=== PATIENT | female | born 1980 | race Caucasian/White ===

== ENCOUNTER 2020-09-14 17:00 | Observation (INO) | payer MEDICAID ==
[2020-09-14] MEDS ORDERED: ONDANSETRON 4 MG/2 ML VIAL IVP STA (17:23)
[2020-09-14] MEDS ORDERED: SODIUM CHLORIDE 0.9% 1,000 ML IV STA (17:23)
[2020-09-14] MEDS ORDERED: LORazepam 2 MG/ML INJ IV STA (17:24)
[2020-09-14] MEDS ORDERED: MECLIZINE 12.5 MG TAB PO STA (17:24)
--- NOTE | 2020-09-14 17:44 | ED ---
General Adult HPI - General Chief complaint: Neuro Symptoms/Deficit Stated complaint: Dizziness, Facial Numbness Time Seen by Provider: 09/14/20 17:15 Source: patient, RN notes reviewed, old records reviewed Mode of arrival: wheelchair Limitations: no limitations - History of Present Illness Initial comments: 40-year-old female presented for evaluation of dizziness, nausea. Patient states that she feels that the room is spinning. This began suddenly at approximately 3:30 PM. She denies any preceding symptoms. No focal numbness or weakness. She states she has bilateral hand and bilateral feet numbness. She states she did have some right-sided chest pain. No central radiating chest pain. No fever or chills. She's had nausea without significant vomiting. - Related Data Home Medications Medication Instructions Recorded Confirmed Ibuprofen [Advil] 600 mg PO Q8HR PRN 09/14/20 09/14/20 buPROPion HCL [Wellbutrin XL] 150 mg PO DAILY 09/14/20 09/14/20 lisinopriL 40 mg PO DAILY 09/14/20 09/14/20 Allergies Allergy/AdvReac Type Severity Reaction Status Date / Time No Known Allergies Allergy Verified 09/14/20 19:01 Review of Systems ROS Statement: Those systems with pertinent positive or pertinent negative responses have been documented in the HPI. ROS Other: All systems not noted in ROS Statement are negative. Past Medical History Past Medical History: Hypertension History of Any Multi-Drug Resistant Organisms: None Reported Past Surgical History: Tubal Ligation Additional Past Surgical History / Comment(s): bunionectomy Past Psychological History: Depression Smoking Status: Vaper Past Alcohol Use History: None Reported Past Drug Use History: None Reported General Exam Limitations: no limitations General appearance: alert, in no apparent distress Head exam: Present: atraumatic, normocephalic Eye exam: Present: normal appearance, PERRL ENT exam: Present: normal exam Neck exam: Present: normal inspection. Absent: tenderness, meningismus Respiratory exam: Present: normal lung sounds bilaterally. Absent: respiratory distress, wheezes Cardiovascular Exam: Present: regular rate, normal rhythm GI/Abdominal exam: Present: soft. Absent: distended, tenderness, guarding, rebound Extremities exam: Present: normal inspection, normal capillary refill, other (2+ bilateral radial pulses, 2+ pedal pulse). Absent: pedal edema Neurological exam: Present: alert, oriented X3, CN II-XII intact. Absent: motor sensory deficit (Strength is 5 out of 5, there is no limb ataxia, Romberg negative) Psychiatric exam: Present: anxious Skin exam: Present: warm, dry, intact. Absent: cyanosis, diaphoretic Course Vital Signs 09/14/20 09/14/20 09/14/20 17:09 17:52 18:00 Temperature 98.3 F Pulse Rate 90 88 86 Respiratory 18 16 17 Rate Blood Pressure 147/89 141/95 O2 Sat by Pulse 100 99 97 Oximetry 09/14/20 09/14/20 09/14/20 18:30 18:33 19:00 Temperature Pulse Rate 100 102 H 96 Respiratory 17 16 16 Rate Blood Pressure 125/84 124/82 124/82 O2 Sat by Pulse 98 98 97 Oximetry 09/14/20 20:18 Temperature 97.6 F Pulse Rate 85 Respiratory 20 Rate Blood Pressure 120/78 O2 Sat by Pulse 97 Oximetry EKG Findings - EKG Comments: EKG Findings:: EKG: Normal sinus rhythm, rate of 87, FL interval 148, QRS duration 84, QTC 464, no ST segment elevation. Medical Decision Making - Medical Decision Making 40-year-old female presenting for evaluation of dizziness, mild headache. Patient is non-ataxic, she did complain of some bilateral hand numbness associated with this as well as foot numbness. This was not unilateral and there was no associated weakness. She has stable vitals. EKG showing sinus rhythm. She has normal CBC, normal CMP, 2+ ketones in the urine. CT brain performed which is negative for intracranial hemorrhage or mass effect. CT angiography is negative for stenosis or acute occlusion. She's given multiple doses of antiemetics, meclizine, and IV fluids in the emergency department. Her symptoms persist. She will be admitted for hydration , symptom control, and neurology consultation. Case discussed with Justin dueñas for [facility], will accept admission. - Lab Data Result diagrams: 09/14/20 17:36 09/14/20 17:36 Lab Results 09/14/20 09/14/20 09/14/20 Range/Units 17:36 17:36 17:36 WBC 7.6 (3.8-10.6) k/uL RBC 4.84 (3.80-5.40) m/uL Hgb 15.8 (11.4-16.0) gm/dL Hct 46.6 H (34.0-46.0) % MCV 96.2 (80.0-100.0) fL MCH 32.6 (25.0-35.0) pg MCHC 33.9 (31.0-37.0) g/dL RDW 12.0 (11.5-15.5) % Plt Count 312 (150-450) k/uL MPV 6.7 Neutrophils % 74 % Lymphocytes % 19 % Monocytes % 4 % Eosinophils % 2 % Basophils % 0 % Neutrophils # 5.6 (1.3-7.7) k/uL Lymphocytes # 1.4 (1.0-4.8) k/uL Monocytes # 0.3 (0-1.0) k/uL Eosinophils # 0.2 (0-0.7) k/uL Basophils # 0.0 (0-0.2) k/uL PT 10.6 (9.0-12.0) sec INR 1.0 (<1.2) APTT 23.5 (22.0-30.0) sec Sodium (137-145) mmol/L Potassium (3.5-5.1) mmol/L Chloride (98-107) mmol/L Carbon Dioxide (22-30) mmol/L Anion Gap mmol/L BUN (7-17) mg/dL Creatinine (0.52-1.04) mg/dL Est GFR (CKD-EPI)AfAm (>60 ml/min/1.73 sqM) Est GFR (CKD-EPI)NonAf (>60 ml/min/1.73 sqM) Glucose (74-99) mg/dL Calcium (8.4-10.2) mg/dL Total Bilirubin (0.2-1.3) mg/dL AST (14-36) U/L ALT (4-34) U/L Alkaline Phosphatase (38-126) U/L Troponin I (0.000-0.034) ng/mL Total Protein (6.3-8.2) g/dL Albumin (3.5-5.0) g/dL Urine Color Colorless Urine Appearance Clear (Clear) Urine pH 6.0 (5.0-8.0) Ur Specific Frannie 1.005 (1.001-1.035) Urine Protein Negative (Negative) Urine Glucose (UA) Negative (Negative) Urine Ketones 2+ H (Negative) Urine Blood Negative (Negative) Urine Nitrite Negative (Negative) Urine Bilirubin Negative (Negative) Urine Urobilinogen <2.0 (<2.0) mg/dL Ur Leukocyte Esterase Negative (Negative) 09/14/20 09/14/20 Range/Units 17:36 17:36 WBC (3.8-10.6) k/uL RBC (3.80-5.40) m/uL Hgb (11.4-16.0) gm/dL Hct (34.0-46.0) % MCV (80.0-100.0) fL MCH (25.0-35.0) pg MCHC (31.0-37.0) g/dL RDW (11.5-15.5) % Plt Count (150-450) k/uL MPV Neutrophils % % Lymphocytes % % Monocytes % % Eosinophils % % Basophils % % Neutrophils # (1.3-7.7) k/uL Lymphocytes # (1.0-4.8) k/uL Monocytes # (0-1.0) k/uL Eosinophils # (0-0.7) k/uL Basophils # (0-0.2) k/uL PT (9.0-12.0) sec INR (<1.2) APTT (22.0-30.0) sec Sodium 134 L (137-145) mmol/L Potassium 4.0 (3.5-5.1) mmol/L Chloride 99 (98-107) mmol/L Carbon Dioxide 23 (22-30) mmol/L Anion Gap 12 mmol/L BUN 6 L (7-17) mg/dL Creatinine 0.73 (0.52-1.04) mg/dL Est GFR (CKD-EPI)AfAm >90 (>60 ml/min/1.73 sqM) Est GFR (CKD-EPI)NonAf >90 (>60 ml/min/1.73 sqM) Glucose 103 H (74-99) mg/dL Calcium 9.7 (8.4-10.2) mg/dL Total Bilirubin 0.7 (0.2-1.3) mg/dL AST 21 (14-36) U/L ALT 26 (4-34) U/L Alkaline Phosphatase 56 (38-126) U/L Troponin I <0.012 (0.000-0.034) ng/mL Total Protein 8.2 (6.3-8.2) g/dL Albumin 4.8 (3.5-5.0) g/dL Urine Color Urine Appearance (Clear) Urine pH (5.0-8.0) Ur Specific Frannie (1.001-1.035) Urine Protein (Negative) Urine Glucose (UA) (Negative) Urine Ketones (Negative) Urine Blood (Negative) Urine Nitrite (Negative) Urine Bilirubin (Negative) Urine Urobilinogen (<2.0) mg/dL Ur Leukocyte Esterase (Negative) Disposition Clinical Impression: Dehydration, Vertigo Disposition: ADMITTED IP TO THIS [facility] Condition: Stable Is patient prescribed a controlled substance at d/c from ED?: No Referrals: Nonstaff,Physician [Primary Care Provider] - 1-2 days Decision to Admit Reason: Admit from EC Decision Date: 09/14/20 Decision Time: 20:36
[2020-09-14 17:52] LABS: Basophils % (A) 0 %; Eosinophils # (A) 0.2 k/uL (0-0.7); Eosinophils % (A) 2 %; HCT 46.6 % (34.0-46.0); HGB 15.8 gm/dL (11.4-16.0); Lymphocytes # (A) 1.4 k/uL (1.0-4.8); Lymphocytes % (A) 19 %; MCH 32.6 pg (25.0-35.0); MCHC 33.9 g/dL (31.0-37.0); MCV 96.2 fL (80.0-100.0); Mean Platelet Volume 6.7; Monocytes # (A) 0.3 k/uL (0-1.0); Monocytes % (A) 4 %; Neutrophils # (A) 5.6 k/uL (1.3-7.7); Neutrophils % (A) 74 %; Platelet Count 312 k/uL (150-450); RBC 4.84 m/uL (3.80-5.40); WBC 7.6 k/uL (3.8-10.6)
[2020-09-14 18:08] LABS: Partial Thromboplastin Time 23.5 sec (22.0-30.0); Prothrombin Time 10.6 sec (9.0-12.0)
[2020-09-14 18:12] LABS: ALT 26 U/L (4-34); AST 21 U/L (14-36); African American GFR (CKD) >90 (>60 ml/min/1.73 sqM); Albumin 4.8 g/dL (3.5-5.0); Alkaline Phosphatase 56 U/L (38-126); Anion Gap 12 mmol/L; Blood Urea Nitrogen 6 mg/dL (7-17); Calcium 9.7 mg/dL (8.4-10.2); Carbon Dioxide 23 mmol/L (22-30); Chloride 99 mmol/L (98-107); Glucose 103 mg/dL (74-99); Non-African American GFR(CKD) >90 (>60 ml/min/1.73 sqM); Sodium 134 mmol/L (137-145); Total Bilirubin 0.7 mg/dL (0.2-1.3); Total Protein 8.2 g/dL (6.3-8.2)
[2020-09-14 18:16] LABS: Appearance,Urine Clear (Clear); Bilirubin,Urine Negative (Negative); Blood,Urine Negative (Negative); Color,Urine Colorless; Glucose,Urine (UA) Negative (Negative); Ketones,Urine 2+ (Negative); Leukocyte Esterase,Urine Negative (Negative); Nitrite,Urine Negative (Negative); Protein,Urine Negative (Negative); Specific Gravity,Urine 1.005 (1.001-1.035); Urobilinogen,Urine <2.0 mg/dL (<2.0)
--- NOTE | 2020-09-14 18:34 | XR ---
EXAMINATION TYPE: XR chest 1V portable DATE OF EXAM: 09/14/2020 COMPARISON: NONE HISTORY: Dizziness TECHNIQUE: Single view FINDINGS: Heart and mediastinum are normal. Lungs are clear. Diaphragm is normal. Bony thorax is inta ct. IMPRESSION: Normal chest
--- NOTE | 2020-09-14 18:55 | CT ---
EXAMINATION TYPE: CT brain wo con DATE OF EXAM: 09/14/2020 COMPARISON: None HISTORY: Dizziness and bilateral hand and feet numbness. CT DLP: 1070.8 mGycm Automated exposure control for dose reduction was used. Ventricles and sulci appear normal. There is no mass effect nor midline shift. There is no sign of in tracranial hemorrhage. The calvarium is intact. There is no evidence of cerebral edema. IMPRESSION: Negative unenhanced head CT scan.
[2020-09-14] MEDS ORDERED: KETOROLAC 15 MG/ML 1 ML VIAL IVP STA (19:36)
[2020-09-14] MEDS ORDERED: SODIUM CHLORIDE 0.9% 500 ML 500 ML IV ONE (19:37)
--- NOTE | 2020-09-14 20:10 | CT ---
EXAMINATION TYPE: CT angio head neck DATE OF EXAM: 09/14/2020 COMPARISON: None HISTORY: Dizziness and bilateral hand and feet numbness. CT DLP: 621.3 mGycm Automated exposure control for dose reduction was used. CONTRAST: Performed with IV Contrast, patient injected with 65ml mL of Isovue 370. Images obtained from the aortic arch to the vertex of the brain with IV contrast. There are 3-D post processed images. There is normal branching pattern of the great vessels on the aortic arch. There is bilateral arteria l flow in the subclavian arteries. There is arterial flow in the common internal and external carotid arteries bilaterally. There is 0% stenosis in both internal carotid arteries. Carotid artery bifurca tions are widely patent. There is arterial flow in both vertebral arteries which are fairly symmetric . There is no evidence of stenosis. There is arterial flow in the vertebrobasilar artery system. There is no evidence of carotid or verte bral artery aneurysm or dissection. There is arterial flow in the anterior middle and posterior cerebral arteries bilaterally. There is n o mass effect. There is no sign of intracranial aneurysm or neovascularity. There is normal enhanceme nt of the venous sinuses. IMPRESSION: Negative CT angiogram of the brain. Negative CT angiogram of the neck.
[2020-09-14] MEDS ORDERED: ONDANSETRON 4 MG/2 ML VIAL IVP PRN (20:29)
[2020-09-14] MEDS ORDERED: ACETAMINOPHEN TAB 325 MG TAB PO PRN (20:29)
[2020-09-14] MEDS ORDERED: LORazepam 2 MG/ML INJ IV PRN (20:29)
[2020-09-14] MEDS ORDERED: NALOXONE 0.4 MG/ML 1 ML VIAL IV PRN (20:29)
[2020-09-14] MEDS ORDERED: MECLIZINE 25 MG TAB PO PRN (20:31)
[2020-09-14] MEDS ORDERED: ASPIRIN 325 MG TAB PO STA (20:37)
[2020-09-14] MEDS: SODIUM CHLORIDE 0.9% 1,000 ML IV SCH (20:48)
[2020-09-15] MEDS: KETOROLAC 15 MG/ML 1 ML VIAL IVP PRN ×2 (05:06→12:01)
[2020-09-15] MEDS: SODIUM CHLORIDE 0.9% 1,000 ML IV SCH (05:07)
[2020-09-15 08:20] VITALS: BP 117/76; PULSE 73; RESP 16; TEMP 98.4
[2020-09-15] MEDS ORDERED: ASPIRIN 325 MG TAB PO SCH (09:00)
--- NOTE | 2020-09-15 11:15 | P.CNNES ---
History of Present Illness Consult date: 09/15/20 Requesting physician: Parker Arreola Reason for Consult: dizziness History of Present Illness: This is a 40-year-old woman with medical history of hypertension and anxiety that presented to the emergency department on 09/14/2020 for dizziness. Patient stated that she is a having a sensation of the room is spinning and it started around 3:30 PM on 09/14/2020. Her dizziness is provoked with position and relieved predominately with resting and not moving. She does have nausea but no vomiting. She denies ringing of the ears of hearing losss. She denies any focal weakness. She does have bilateral hand and feet numbness at onset of dizziness and it subsided within a couple hours. She denied any visual dist urbance, difficulty getting her words out or swallowing. She denies of any fever. She denies any trauma to the head or ear. She denies of cough. She said her Wellbutrin was increased this past Monday from 50mg regular dose to 150XR daily because of her anxiety. Workup in the hospital consisted of: CT of the head is reported as negative unenhanced head CT scan. CT angiography of the head and neck was reported as negative of the brain and negative CT angiography of the neck. EKG is reported as normal sinus rhythm. Normal EKG. White blood cell is 7.6 which is normal. Sodium is 134. Serum glucose is 103. Serum glucose is 9.7. AST 21 ALT is 26. Urine analysis is negative for urinary tract infection. Layne virus PCR was not detected. In the ED the patient was given the meclizine 25 mg once and then was started on the 25 mg 1 tablet 3 times a day when necessary. Patient was also given Ativan 0.5 mg once. And was given Zofran 4 mg IV once in the ED then was started on Zofran 4 mg IV every 8 hours as needed. Review of Systems Review of system: The 12 point system was reviewed and apparent positive and negative per HPI. Past Medical History Past Medical History: Hypertension History of Any Multi-Drug Resistant Organisms: None Reported Past Surgical History: Tubal Ligation Additional Past Surgical History / Comment(s): bunionectomy Past Anesthesia/Blood Transfusion Reactions: No Reported Reaction Past Psychological History: Anxiety Smoking Status: Vaper Past Alcohol Use History: None Reported Past Drug Use History: None Reported Medications and Allergies Home Medications Medication Instructions Recorded Confirmed Type Ibuprofen [Advil] 600 mg PO Q8HR PRN 09/14/20 09/14/20 History buPROPion HCL [Wellbutrin XL] 150 mg PO DAILY 09/14/20 09/14/20 History lisinopriL 40 mg PO DAILY 09/14/20 09/14/20 History Allergies Allergy/AdvReac Type Severity Reaction Status Date / Time No Known Allergies Allergy Verified 09/14/20 19:01 Physical Examination - Vital Signs Vital Signs: Vital Signs Temp Pulse Pulse Pulse Pulse Pulse Resp 09/15/20 09:41 09/15/20 07:00 98.4 F 94 94 73 16 09/15/20 02:30 97.9 F 95 14 09/15/20 01:57 18 09/14/20 22:45 97.9 F 75 18 09/14/20 22:20 97.8 F 85 20 09/14/20 20:18 97.6 F 85 20 09/14/20 19:00 96 16 09/14/20 18:33 102 H 16 09/14/20 18:30 100 17 09/14/20 18:00 86 17 09/14/20 17:52 88 16 09/14/20 17:09 98.3 F 90 18 BP BP BP BP BP Pulse Ox 09/15/20 09:41 95 09/15/20 07:00 99/66 110/73 117/76 96 09/15/20 02:30 106/67 93 L 09/15/20 01:57 09/14/20 22:45 127/86 96 09/14/20 22:20 115/83 95 09/14/20 20:18 120/78 97 09/14/20 19:00 124/82 97 09/14/20 18:33 124/82 98 09/14/20 18:30 125/84 98 09/14/20 18:00 141/95 97 09/14/20 17:52 99 09/14/20 17:09 147/89 100 Intake and Output 09/14/20 09/15/20 09/15/20 22:59 06:59 14:59 Intake Total 120 Balance 120 Intake: Oral 120 Other: # Voids 1 Weight 82.554 kg GENERAL: The patient is lying in bed and is not in acute distress. CHEST: The heart rate is regular rate rhythm. No murmurs to auscultation. LUNG: Clear to auscultation bilaterally no wheezing noted throughout. Not labored breathing. ABDOMEN/GI: Bowel sounds present in all 4 quadrants. No tenderness to palpation throughout. NEUROLOGICAL: Higher mental function: The patient is awake, alert, oriented to self, place and time. Patient is following commands. No aphasia and no neglect. Cranial nerves: The pupils are round, equal and reactive to light and accommodation. Visual poon are full to confrontation throughout. Extraocular movement is intact no nystagmus is noted. Facial sensation is normal to touch throughout. The facial strength is normal throughout. Hearing is normal bilaterally to hand rub. Tongue is midline and moved [id number] without any difficulty. No dysarthria is noted. Shoulder shrug is normal bilaterally. Motor: Gait was assssed and patient felt dizzy with movement but was not swaying toward one side or the other. The strength is 5 over 5 throughout. Normal tone and bulk. Cerebellum: Normal finger to nose bilaterally. Sensation: Sensation is normal to touch throughout. Reflexes (right/left): 2+ throughout. Plantars are downgoing bilaterally. Results - Laboratory Findings CBC and BMP: 09/14/20 17:36 09/14/20 17:36 Abnormal Lab Findings: Abnormal Labs 09/14/20 09/14/20 09/14/20 17:36 17:36 17:36 Hct 46.6 H Sodium 134 L BUN 6 L Glucose 103 H Urine Ketones 2+ H Assessment and Plan Assessment: This is a 40-year-old woman that presented to emergency department on 09/14/2020 because of dizziness. She describes as the room is spinning and she feels nauseous. Her dizziness is worsened with position and relieved with rest. er Wellbutrin was increased this past Monday from 50mg regular dose to 150XR daily because of her anxiety. Acute vertigo likely due to benign positional vertigo. Also possible it could be a side-effect of Wellbutrin (since can cause dizziness especially with drastic increase). History of hypertension Anxiety Plan: CT of the head is reported as negative unenhanced head CT scan. CT angiography of the head and neck was reported as negative of the brain and negative CT angiography of the neck. In the ED the patient was given the meclizine 25 mg once and then was started on the 25 mg 1 tablet 3 times a day when necessary. Patient was also given Ativan 0.5 mg once. And was given Zofran 4 mg IV once in the ED then was started on Zofran 4 mg IV every 8 hours as needed. Patient well was told that the MRI the brain is not needed as an inpatient. If the patient continues to have dizziness as an outpatient the then she was told to get the MRI of the brain as an outpatient or if she develops any new symptoms to come back and we'll pursue with this MRI the brain that. Regarding the meclizine I recommend the patient to be on 25 mg 1 tablet 3 times a day as scheduled (her symptoms are improving). Also recommended for the patient the did perform Edwar maneuver at home. Consider ENT the consult as an outpatient. Also consider vestibular rehab as an outpatient. Regarding the Wellbutrin, the patient stated that her physician modified her medication from extended release and will place her on a twice a day dose instead of the extended release (she said she will pick-up the medication from the pharmacy). There is no further work-up needed at this time. The plan was discussed with the patient and her nuse. Thank you for the consultation. Yuriy Mario M.D. Neuro-hospitalist Time with Patient: Greater than 30
[2020-09-15] MEDS ORDERED: SODIUM CHLORIDE 0.9% 1,000 ML IV ONE (12:23)
--- NOTE | 2020-09-15 15:07 | P.HPIM ---
History of Present Illness 40-year-old pleasant female came in with complaints of dizziness which is room spinning around her rather lightheadedness. Patient the blood pressure is also low on admission. Patient was started on JACK inhibitor about 40 mg of lis inopril after because of her -induced hypertension. Patient denied any hearing loss or ringing in the ears patient was having nausea but no vomiting, patient denied any fever chills patient denied any fullness in the ears or ringing in the ears. Patient to Had a workup with a CT of the head which did not show any significant abnormality CT angiography of the head and neck did not show any significant abnormality either. Review of Systems REVIEW OF SYSTEMS: CONSTITUTIONAL: No fever, no malaise, no fatigue. HEENT: No recent visual problems or hearing problems. Denied any sore throat. CARDIOVASCULAR: No chest pain, orthopnea, PND, no palpitations, no syncope. PULMONARY: No shortness of breath, no cough, no hemoptysis. GASTROINTESTINAL: No diarrhea, no nausea, no vomiting, no abdominal pain. NEUROLOGICAL: No headaches, no weakness, no numbness. HEMATOLOGICAL: Denies any bleeding or petechiae. GENITOURINARY: Denies any burning micturition, frequency, or urgency. MUSCULOSKELETAL/RHEUMATOLOGICAL: Denies any joint pain, swelling, or any muscle pain. ENDOCRINE: Denies any polyuria or polydipsia. The rest of the 14-point review of systems is negative. Past Medical History Past Medical History: Hypertension History of Any Multi-Drug Resistant Organisms: None Reported Past Surgical History: Tubal Ligation Additional Past Surgical History / Comment(s): bunionectomy Past Anesthesia/Blood Transfusion Reactions: No Reported Reaction Past Psychological History: Anxiety Smoking Status: Vaper Past Alcohol Use History: None Reported Past Drug Use History: None Reported Medications and Allergies Home Medications Medication Instructions Recorded Confirmed Type Ibuprofen [Advil] 600 mg PO Q8HR PRN 09/14/20 09/14/20 History buPROPion HCL [Wellbutrin XL] 150 mg PO DAILY 09/14/20 09/14/20 History lisinopriL 40 mg PO DAILY 09/14/20 09/14/20 History Meclizine [Antivert] 25 mg PO TID PRN #30 tab 09/15/20 Rx Allergies Allergy/AdvReac Type Severity Reaction Status Date / Time No Known Allergies Allergy Verified 09/14/20 19:01 Physical Exam Vitals: Vital Signs Temp Pulse Pulse Pulse Pulse Pulse Resp 09/15/20 09:41 09/15/20 07:00 98.4 F 94 94 73 16 09/15/20 02:30 97.9 F 95 14 09/15/20 01:57 18 09/14/20 22:45 97.9 F 75 18 09/14/20 22:20 97.8 F 85 20 09/14/20 20:18 97.6 F 85 20 09/14/20 19:00 96 16 09/14/20 18:33 102 H 16 09/14/20 18:30 100 17 09/14/20 18:00 86 17 09/14/20 17:52 88 16 09/14/20 17:09 98.3 F 90 18 BP BP BP BP BP Pulse Ox 09/15/20 09:41 95 09/15/20 07:00 99/66 110/73 117/76 96 09/15/20 02:30 106/67 93 L 09/15/20 01:57 09/14/20 22:45 127/86 96 09/14/20 22:20 115/83 95 09/14/20 20:18 120/78 97 09/14/20 19:00 124/82 97 09/14/20 18:33 124/82 98 09/14/20 18:30 125/84 98 09/14/20 18:00 141/95 97 09/14/20 17:52 99 09/14/20 17:09 147/89 100 Intake and Output 09/15/20 09/15/20 09/15/20 06:59 14:59 22:59 Intake Total 120 Balance 120 Intake: Oral 120 Other: # Voids 1 PHYSICAL EXAMINATION: GENERAL: The patient is alert and oriented x3, not in any acute distress. Well developed, well nourished. HEENT: Pupils are round and equally reacting to light. EOMI. No scleral icterus. No conjunctival pallor. Normocephalic, atraumatic. No pharyngeal erythema. No thyromegaly. CARDIOVASCULAR: S1 and S2 present. No murmurs, rubs, or gallops. PULMONARY: Chest is clear to auscultation, no wheezing or crackles. ABDOMEN: Soft, nontender, nondistended, normoactive bowel sounds. No palpable organomegaly. MUSCULOSKELETAL: No joint swelling or deformity. EXTREMITIES: No cyanosis, clubbing, or pedal edema. NEUROLOGICAL: Gross neurological examination did not reveal any focal deficits. Performed Lico- Halspike maneuver with improvement of symptoms. SKIN: No rashes. Results CBC & Chem 7: 09/14/20 17:36 09/14/20 17:36 Labs: Abnormal Lab Results - Last 24 Hours (Table) 09/14/20 09/14/20 09/14/20 Range/Units 17:36 17:36 17:36 Hct 46.6 H (34.0-46.0) % Sodium 134 L (137-145) mmol/L BUN 6 L (7-17) mg/dL Glucose 103 H (74-99) mg/dL Urine Ketones 2+ H (Negative) Thrombosis Risk Factor Assmnt - Choose All That Apply Any of the Below Risk Factors Present?: Yes Each Factor Represents 1 point: Obesity (BMI >25) Other Risk Factors: No Thrombosis Risk Factor Assessment Total Risk Factor Score: 1 Thrombosis Risk Factor Assessment Level: Low Risk Assessment and Plan Plan: -Benign push vertigo: Patient was evaluated by neurology and patient will be discharged today with meclizine patient had improved symptoms with the lico- halspike maneuver and patient will be counseled regarding a Edwar's Maneuver. Patient will be referred to ENT as well and if her symptoms doesn't improve in spite of all these measures may need vestibular rehabilitation at that time. -Hypertension: I do not believe patient has essential hypertension patient may have had -induced hypertension patient was on lisinopril since then patient will be discontinued and patient will check her blood pressure 2-3 times a day at home and depending on the blood pressures decision can be made regarding the initiation of this medication. -Anxiety disorder for which patient is on Wellbutrin possibility of Wellbutrin causing vertigo is low -Hypovolemic hyponatremia: Patient was given a bolus of IV normal saline deformity or discharge.
--- NOTE | 2020-09-15 15:07 | P.DS ---
Providers Date of admission: 09/14/20 20:31 Attending physician: Evon Fletcher Consults: 09/14/20 20:36 Consult Physician Routine Consulting Provider: Yuriy Mario Reason/Comments: Vertigo Do you want consulting provider notified?: Yes Primary care physician: Physician Nonsta Hospital Course: Refer to my history of present illness for further details Patient Condition at Discharge: Stable Plan - Discharge Summary Discharge Rx Participant: No New Discharge Prescriptions: New Meclizine [Antivert] 25 mg PO TID PRN #30 tab PRN Reason: Vertigo Continue lisinopriL 40 mg PO DAILY buPROPion HCL [Wellbutrin XL] 150 mg PO DAILY Ibuprofen [Advil] 600 mg PO Q8HR PRN PRN Reason: Pain Or Fever > 100.5 Discharge Medication List Ibuprofen [Advil] 600 mg PO Q8HR PRN 09/14/20 [History] buPROPion HCL [Wellbutrin XL] 150 mg PO DAILY 09/14/20 [History] lisinopriL 40 mg PO DAILY 09/14/20 [History] Meclizine [Antivert] 25 mg PO TID PRN #30 tab 09/15/20 [Rx] Follow up Appointment(s)/Referral(s): Patrice Odom MD [REFERRING] - 1 Week Preeti Menon PAC [REFERRING] - 09/22/20 10:30 am Angel Sargent MD [STAFF PHYSICIAN] - 09/23/20 7:45 am (arrive at 715 assistant [employer] delivery [facility]) Patient Instructions/Handouts: Benign Paroxysmal Positional Vertigo (DC) Discharge Disposition: HOME SELF-CARE
== END 2020-09-15 14:10 | disposition home or self-care (01) ==
LOC: EC 17:00 → 6NMEDSUR 20:31
PROVIDERS: ADMIT Internal Medicine; ATTEND Internal Medicine
DX: E86.0 Dehydration (principal); H81.10 Benign paroxysmal vertigo, unspecified ear; E86.1 Hypovolemia; E87.1 Hypo-osmolality and hyponatremia; Z20.828 Contact with and (suspected) exposure to other viral communicable diseases; Z98.51 Tubal ligation status; Z98.890 Other specified postprocedural states; F41.9 Anxiety disorder, unspecified; F17.290 Nicotine dependence, other tobacco product, uncomplicated; Z79.899 Other long term (current) drug therapy
CPT/HCPCS: 96376; 96361; 96374; 96375; 99285; 36415; 94760; 93005; 80053; 84484; 85025; 85610; 85730; 81003; 87635; 71045; 70496; 70450; 70498; G0378 ×2; J2060; J2405; J1885 ×2; Q9967

== ENCOUNTER 2021-08-06 05:58 | Observation (INO) | payer MEDICAID ==
[2021-08-06] MEDS ORDERED: SODIUM CHLORIDE 0.9% 500 ML 500 ML IV STA (06:49)
[2021-08-06] MEDS ORDERED: LORazepam 2 MG/ML INJ IV STA (06:49)
[2021-08-06] MEDS ORDERED: ASPIRIN 81 MG PO STA (06:49)
--- NOTE | 2021-08-06 06:52 | ED ---
General Adult HPI - General Chief complaint: Chest Pain Stated complaint: Chest pain Time Seen by Provider: 08/06/21 06:12 Source: patient Mode of arrival: wheelchair Limitations: physical limitation - History of Present Illness Initial comments: 41-year-old female with a past medical history of hypertension presents to the emergency room for a chief complaint of chest pain. Patient states she has had a squeezing pain in the center of her chest since last night around 7:30 PM. Patient reports it does radiate to her back slightly. Patient states that she also feels anxious. She reports that this has been happening on and off for the past couple months. She saw her doctor yesterday who changed her anxiety medications and gave her a weight loss of Ozempic. She does not to some nausea and vomited once yesterday but this could be from her medication. Patient denies diaphoresis. Denies pain worsening with exertion.Patient has no other complaints at this time including shortness of breath, abdominal pain, nausea or vomiting, headache, or visual changes. - Related Data Home Medications Medication Instructions Recorded Confirmed Ascorbic Acid [Vitamin C] 1,000 mg PO DAILY 08/06/21 08/06/21 Cholecalciferol [Vitamin D3 (125 125 mcg PO DAILY 08/06/21 08/06/21 Mcg = 5000 Iu)] FLUoxetine HCL [PROzac] 10 mg PO DAILY 08/06/21 08/06/21 Zinc 50 mg PO DAILY 08/06/21 08/06/21 buPROPion HCL [Wellbutrin SR] See Taper PO DAILY 08/06/21 08/06/21 lisinopriL [Zestril] 20 mg PO DAILY 08/06/21 08/06/21 traZODone HCL [Desyrel] 100 mg PO HS PRN 08/06/21 08/06/21 Allergies Allergy/AdvReac Type Severity Reaction Status Date / Time No Known Allergies Allergy Verified 08/06/21 09:21 Review of Systems ROS Statement: Those systems with pertinent positive or pertinent negative responses have been documented in the HPI. ROS Other: All systems not noted in ROS Statement are negative. Past Medical History Past Medical History: Hypertension History of Any Multi-Drug Resistant Organisms: None Reported Past Surgical History: Tubal Ligation Additional Past Surgical History / Comment(s): bunionectomy Past Anesthesia/Blood Transfusion Reactions: No Reported Reaction Past Psychological History: Anxiety Smoking Status: Vaper Past Alcohol Use History: None Reported Past Drug Use History: None Reported General Exam Limitations: physical limitation General appearance: alert, in no apparent distress Head exam: Present: atraumatic Eye exam: Present: normal appearance, PERRL, EOMI. Absent: scleral icterus, conjunctival injection ENT exam: Present: normal exam, mucous membranes moist Neck exam: Present: normal inspection, full ROM. Absent: tenderness Respiratory exam: Present: normal lung sounds bilaterally. Absent: respiratory distress, wheezes Cardiovascular Exam: Present: regular rate, normal rhythm, normal heart sounds GI/Abdominal exam: Present: soft, normal bowel sounds. Absent: distended, tenderness Course Vital Signs 08/06/21 08/06/21 06:04 07:31 Temperature 98.2 F Pulse Rate 95 80 Respiratory 18 18 Rate Blood Pressure 139/93 125/82 O2 Sat by Pulse 97 97 Oximetry EKG Findings - EKG Comments: EKG Findings:: Normal sinus rhythm, ventricular rate 89, AR interval 122, QTc 455 Medical Decision Making - Medical Decision Making Vitals are stable. CBC and and CMP are unremarkable. D-dimer is normal. Troponin is negative. Patient did test positive for COVID-19, which she apparently just recovered from 3 months ago. She will be admitted for cardiology consultation and trending troponin. - Lab Data Result diagrams: 08/06/21 07:30 08/06/21 07:30 Lab Results 08/06/21 08/06/21 08/06/21 Range/Units 07:20 07:30 07:30 WBC 6.0 (3.8-10.6) k/uL RBC 4.52 (3.80-5.40) m/uL Hgb 14.3 (11.4-16.0) gm/dL Hct 44.0 (34.0-46.0) % MCV 97.3 (80.0-100.0) fL MCH 31.6 (25.0-35.0) pg MCHC 32.5 (31.0-37.0) g/dL RDW 12.1 (11.5-15.5) % Plt Count 340 (150-450) k/uL MPV 6.8 Neutrophils % 71 % Lymphocytes % 17 % Monocytes % 8 % Eosinophils % 2 % Basophils % 0 % Neutrophils # 4.3 (1.3-7.7) k/uL Lymphocytes # 1.0 (1.0-4.8) k/uL Monocytes # 0.5 (0-1.0) k/uL Eosinophils # 0.1 (0-0.7) k/uL Basophils # 0.0 (0-0.2) k/uL PT 10.7 (9.0-12.0) sec INR 1.0 (<1.2) APTT 24.5 (22.0-30.0) sec D-Dimer 0.19 (<0.60) mg/L FEU Sodium (137-145) mmol/L Potassium (3.5-5.1) mmol/L Chloride (98-107) mmol/L Carbon Dioxide (22-30) mmol/L Anion Gap mmol/L BUN (7-17) mg/dL Creatinine (0.52-1.04) mg/dL Est GFR (CKD-EPI)AfAm (>60 ml/min/1.73 sqM) Est GFR (CKD-EPI)NonAf (>60 ml/min/1.73 sqM) Glucose (74-99) mg/dL Calcium (8.4-10.2) mg/dL Magnesium (1.6-2.3) mg/dL Total Bilirubin (0.2-1.3) mg/dL AST (14-36) U/L ALT (4-34) U/L Alkaline Phosphatase (38-126) U/L Troponin I (0.000-0.034) ng/mL NT-Pro-B Natriuret Pep pg/mL Total Protein (6.3-8.2) g/dL Albumin (3.5-5.0) g/dL Lipase (23-300) U/L HCG, Qual Coronavirus (PCR) Detected A (Not Detectd) 08/06/21 08/06/21 08/06/21 Range/Units 07:30 07:30 07:30 WBC (3.8-10.6) k/uL RBC (3.80-5.40) m/uL Hgb (11.4-16.0) gm/dL Hct (34.0-46.0) % MCV (80.0-100.0) fL MCH (25.0-35.0) pg MCHC (31.0-37.0) g/dL RDW (11.5-15.5) % Plt Count (150-450) k/uL MPV Neutrophils % % Lymphocytes % % Monocytes % % Eosinophils % % Basophils % % Neutrophils # (1.3-7.7) k/uL Lymphocytes # (1.0-4.8) k/uL Monocytes # (0-1.0) k/uL Eosinophils # (0-0.7) k/uL Basophils # (0-0.2) k/uL PT (9.0-12.0) sec INR (<1.2) APTT (22.0-30.0) sec D-Dimer (<0.60) mg/L FEU Sodium 136 L (137-145) mmol/L Potassium 4.3 (3.5-5.1) mmol/L Chloride 105 (98-107) mmol/L Carbon Dioxide 24 (22-30) mmol/L Anion Gap 7 mmol/L BUN 8 (7-17) mg/dL Creatinine 0.81 (0.52-1.04) mg/dL Est GFR (CKD-EPI)AfAm >90 (>60 ml/min/1.73 sqM) Est GFR (CKD-EPI)NonAf >90 (>60 ml/min/1.73 sqM) Glucose 106 H (74-99) mg/dL Calcium 9.8 (8.4-10.2) mg/dL Magnesium 2.1 (1.6-2.3) mg/dL Total Bilirubin 0.6 (0.2-1.3) mg/dL AST 21 (14-36) U/L ALT 23 (4-34) U/L Alkaline Phosphatase 65 (38-126) U/L Troponin I <0.012 (0.000-0.034) ng/mL NT-Pro-B Natriuret Pep <11 pg/mL Total Protein 7.7 (6.3-8.2) g/dL Albumin 4.4 (3.5-5.0) g/dL Lipase 76 (23-300) U/L HCG, Qual Not Detected Coronavirus (PCR) (Not Detectd) Disposition Clinical Impression: Chest pain, COVID-19 Disposition: ADMITTED IP TO THIS HOSP Is patient prescribed a controlled substance at d/c from ED?: No Referrals: None,Stated [Primary Care Provider] - 1-2 days Time of Disposition: 09:32
--- NOTE | 2021-08-06 07:34 | XR ---
EXAMINATION TYPE: XR chest 2V DATE OF EXAM: 08/06/2021 COMPARISON: Chest x-ray September 14, 2020 HISTORY: Chest pain. TECHNIQUE: Frontal and lateral views of the chest are obtained. FINDINGS: Overlying EKG leads are redemonstrated. There is no suspicious new focal air space opacity, pleural effusion, or pneumothorax seen. The cardiac silhouette size remains within normal limits. The osseous structures are intact. IMPRESSION: No acute process. No significant change from prior.
[2021-08-06 07:42] LABS: Basophils % (A) 0 %; Eosinophils # (A) 0.1 k/uL (0-0.7); Eosinophils % (A) 2 %; HGB 14.3 gm/dL (11.4-16.0); Lymphocytes % (A) 17 %; MCH 31.6 pg (25.0-35.0); MCHC 32.5 g/dL (31.0-37.0); MCV 97.3 fL (80.0-100.0); Mean Platelet Volume 6.8; Monocytes # (A) 0.5 k/uL (0-1.0); Monocytes % (A) 8 %; Neutrophils # (A) 4.3 k/uL (1.3-7.7); Neutrophils % (A) 71 %; Platelet Count 340 k/uL (150-450); RBC 4.52 m/uL (3.80-5.40); RDW 12.1 % (11.5-15.5)
[2021-08-06 07:58] LABS: ALT 23 U/L (4-34); AST 21 U/L (14-36); African American GFR (CKD) >90 (>60 ml/min/1.73 sqM); Albumin 4.4 g/dL (3.5-5.0); Alkaline Phosphatase 65 U/L (38-126); Anion Gap 7 mmol/L; Blood Urea Nitrogen 8 mg/dL (7-17); Calcium 9.8 mg/dL (8.4-10.2); Carbon Dioxide 24 mmol/L (22-30); Chloride 105 mmol/L (98-107); Glucose 106 mg/dL (74-99); Lipase 76 U/L (23-300); Magnesium 2.1 mg/dL (1.6-2.3); Non-African American GFR(CKD) >90 (>60 ml/min/1.73 sqM); Partial Thromboplastin Time 24.5 sec (22.0-30.0); Potassium 4.3 mmol/L (3.5-5.1); Prothrombin Time 10.7 sec (9.0-12.0); Sodium 136 mmol/L (137-145); Total Bilirubin 0.6 mg/dL (0.2-1.3); Total Protein 7.7 g/dL (6.3-8.2)
[2021-08-06 08:08] LABS: HCG,Qualitative Serum Not Detected
[2021-08-06] MEDS ORDERED: MORPHINE SULFATE 4 MG/ML SYRINGE IVP PRN (09:36)
[2021-08-06] MEDS ORDERED: traZODone HCL 100 MG TAB PO PRN (09:38)
--- NOTE | 2021-08-06 13:07 | P.HPIM ---
History of Present Illness H&P Date: 08/06/21 Chief Complaint: chest pain 41-year-old female with a past medical history of hypertension, GERD and anxiety presents to the emergency room for a chief complaint of chest pain. Patient states she has had a squeezing/achy pain in the center of her chest since last night around 7:30 PM. Patient reports it does radiate to her upper back slightly. Patient states that she had problem with anxiety for the last 2 years, and it has been difficult for her to control it. She has been taking welbutrin just yesterday her PCP added paxil and trazodone. Chest pain has been on and off for the past couple months. Had associated nausea and vomiting yesterday, also started having a cough. Patient denies diaphoresis. Denies pain worsening with exertion. No other complaints including shortness of breath, abdominal pain, nausea or vomiting, headache, or visual changes. Review of Systems Complete review of system performed, pertinent positives per HPI, otherwise negative Past Medical History Past Medical History: Hypertension History of Any Multi-Drug Resistant Organisms: None Reported Past Surgical History: Tubal Ligation Additional Past Surgical History / Comment(s): bunionectomy Past Anesthesia/Blood Transfusion Reactions: No Reported Reaction Past Psychological History: Anxiety Smoking Status: Vaper Past Alcohol Use History: None Reported Past Drug Use History: None Reported Medications and Allergies Home Medications Medication Instructions Recorded Confirmed Type Ascorbic Acid [Vitamin C] 1,000 mg PO DAILY 08/06/21 08/06/21 History Cholecalciferol [Vitamin D3 (125 125 mcg PO DAILY 08/06/21 08/06/21 History Mcg = 5000 Iu)] FLUoxetine HCL [PROzac] 10 mg PO DAILY 08/06/21 08/06/21 History Zinc 50 mg PO DAILY 08/06/21 08/06/21 History buPROPion HCL [Wellbutrin SR] See Taper PO DAILY 08/06/21 08/06/21 History lisinopriL [Zestril] 20 mg PO DAILY 08/06/21 08/06/21 History traZODone HCL [Desyrel] 100 mg PO HS PRN 08/06/21 08/06/21 History Allergies Allergy/AdvReac Type Severity Reaction Status Date / Time No Known Allergies Allergy Verified 08/06/21 09:21 Physical Exam Vitals: Vital Signs Temp Pulse Resp BP Pulse Ox 08/06/21 09:49 98.0 F 82 18 113/69 96 08/06/21 09:37 96 08/06/21 07:31 80 18 125/82 97 08/06/21 06:04 98.2 F 95 18 139/93 97 Intake and Output 08/05/21 08/06/21 08/06/21 22:59 06:59 14:59 Other: Weight 80.739 kg 80.739 kg Constitutional: No acute distress, conversant, pleasant Eyes:Anicteric sclerae, moist conjunctiva, no lid-lag, PERRLA, ENMT: Oropharynx clear, no erythema, exudates Neck: Supple, FROM, no masses, or JVD, No carotid bruits, No thyromegaly Lungs: Clear to auscultation, Clear to percussion, Normal respiratory effort, no accessory muscle use Cardiovascular: Heart regular in rate and rhythm, No murmurs, gallops, or rubs, No peripheral edema Abdominal: Soft, Nontender, no guarding, rebound or rigidity, Normoactive bowel sounds, No hepatomegaly, No splenomegaly, No palpable mass Skin: Normal temperature, tone, texture, turgor, no induration, No subcutaneous nodules, No rash, lesions, No ulcers Extremities: No digital cyanosis, No clubbing, Pedal pulses intact and symmetrical, Radial pulses intact and symmetrical, No calf tenderness Psychiatric: Alert and oriented to person, place and time, appropriate affect, intact judgement Neuro: Muscles Strength 5/5 in all 4 extremities, Sensation to light touch billie sly present throughout, Cranial nerves II-XII grossly intact, no focal sensory deficits Results CBC & Chem 7: 08/06/21 07:30 08/06/21 07:30 Labs: Abnormal Lab Results - Last 24 Hours (Table) 08/06/21 08/06/21 Range/Units 07:20 07:30 Sodium 136 L (137-145) mmol/L Glucose 106 H (74-99) mg/dL Coronavirus (PCR) Detected A (Not Detectd) Thrombosis Risk Factor Assmnt - Choose All That Apply Any of the Below Risk Factors Present?: Yes Each Factor Represents 1 point: Age 41-60 years Other Risk Factors: No Thrombosis Risk Factor Assessment Total Risk Factor Score: 1 Thrombosis Risk Factor Assessment Level: Low Risk Assessment and Plan Plan: Chest pain Rule out [place], cycle troponins Could be secondary to anxiety versus GERD Telemetry Consult cardiology COVID-19 Currently stable, no desaturations, continue to monitor O2 sats Anxiety and depression Continue Paxil, Wellbutrin, hold trazodone as patient had a bad reaction to it last night. GERD Patient instructed on lifestyle changes to help with that If failed then start PPI Essential hypertension Resume BP meds DVT prophylaxis Lovenox subcu Admit to observation
--- NOTE | 2021-08-06 13:36 | P.CRDCN ---
History of Present Illness History of present illness: HISTORY OF PRESENTING ILLNESS This is a pleasant 41-year-old female past medical history significant for anxiety and hypertension. She does not follow with a spray dyer. We have been asked to see in consultation for chest pain. Patient presents emergency department with complaints of palpitations and chest pain. Shes states she has been having intermittent chest pain and palpitations for almost a year. She states the chest pain is in the center of her chest, it comes and goes. She usu ally gets the palpitations and chest discomfort together, about once per day. She previously had Covid last year and states that her chest pain and palpitations have worsened since being diagnosed with Covid. She states when she gets the chest pain and palpitations that last about 34 minutes and r esolves on its own. She states that she's been having difficulty with anxiety over the past year and has been difficult to control. She also has noticed it being worse at night and having difficulty sleeping. She has been taking Wellbutrin, and is currently getting tapered off.. And has been tried Paxil and trazodone, with not much relief. Her chest pain, it is nonradiating, nonexertional. She denies any associated diaphoresis, shortness of breath, nausea, vomiting, lightheadedness or dizzin ess. She does endorse a cough today. Her chest pain has resolved. She denies any history of MS, CAD, diabetes, stroke. DIAGNOSTICS EKG reveals sinus rhythm, heart rate 89,no significant STT abnormalities. Telemetry tracings indicate sinus mechanism, heart rate in the 80s, no arrhythmia noted. Chest xray no acute cardiopulmonary process, no pneumonia. Laboratory reviewed, CBC unremarkable, troponin negative 3, proBNP less than 11, d-dimer negative, sodium 136, potassium 4.3, BUN 8, serum creatinine 0.8, magnesium 2.1 Current home medications include lisinopril 20 mg daily, Prozac 10 mg daily, Wellbutrin taper , trazodone at night REVIEW OF SYSTEMS At the time of my exam: CONSTITUTIONAL: Denies fever or chills. CARDIOVASCULAR: Denies chest pain, shortness of breath, orthopnea, PND or pa lpitations. RESPIRATORY: +cough. GASTROINTESTINAL: Denies abdominal pain, diarrhea, constipation, nausea or vomiting. MUSCULOSKELETAL: Denies myalgias. NEUROLOGIC: Denies numbness, tingling, headacbe or weakness. ENDOCRINE: Denies fatigue, weight change, polydipsia or polyurina. GENITOURINARY: Denies burning, hematuria or urgency with micturation. HEMATOLOGIC: Denies history of anemia or bleeding. PHYSICAL EXAMINATION Blood pressure 113/69, heart rate 82, afebrile, saturations 96% on room air CONSTITUTIONAL: No apparent distress. HEENT: Neck Supple. No JVD. CHEST EXAMINATION: Respirations equal unlabored. HEART EXAMINATION: Regular rate and rhythm. S1, S2 ABDOMEN: Soft, nontender. EXTREMITIES: no lower extremity edema and no calf tenderness. NEUROLOGIC EXAMINATION: Patient is awake, alert and oriented x3. ASSESSMENT Chest pain, atypical, does not appear to be cardiac etiology, possibly related to anxiety, acute coronary syndrome has been ruled out Palpitations History of anxiety History of hypertension PLAN -From a cardiology perspective, an acute coronary event has been ruled out with no EKG evidence of ischemia and negative cardiac enzymes. Patient's chest pain and palpitations, could be related to anxiety. We will obtain 2D echocardiogram and doppler study to assess cardiac structure and function. Check TSH. Ok to discharge from cardiology perspective if no acute findings on echocardiogram. Recommend patient to follow up outpatient and further workup for palpitations can be done as an outpatient. Thank you kindly for this consultation. Nurse Practitioner note has been reviewed, I agree with a documented findings and plan of care. Patient was seen and examined. Past Medical History Past Medical History: Hypertension History of Any Multi-Drug Resistant Organisms: None Reported Past Surgical History: Tubal Ligation Additional Past Surgical History / Comment(s): bunionectomy Past Anesthesia/Blood Transfusion Reactions: No Reported Reaction Past Psychological History: Anxiety Smoking Status: Vaper Past Alcohol Use History: None Reported Past Drug Use History: None Reported Medications and Allergies Home Medications Medication Instructions Recorded Confirmed Type Ascorbic Acid [Vitamin C] 1,000 mg PO DAILY 08/06/21 08/06/21 History Cholecalciferol [Vitamin D3 (125 125 mcg PO DAILY 08/06/21 08/06/21 History Mcg = 5000 Iu)] FLUoxetine HCL [PROzac] 10 mg PO DAILY 08/06/21 08/06/21 History Zinc 50 mg PO DAILY 08/06/21 08/06/21 History lisinopriL [Zestril] 20 mg PO DAILY 08/06/21 08/06/21 History traZODone HCL [Desyrel] 100 mg PO HS PRN 08/06/21 08/06/21 History buPROPion SR [Wellbutrin SR] 100 mg PO Q48H 10 Days #5 tablet 08/07/21 Rx Allergies Allergy/AdvReac Type Severity Reaction Status Date / Time No Known Allergies Allergy Verified 08/06/21 09:21 Physical Exam Vitals: Vital Signs Temp Pulse Resp BP Pulse Ox 08/06/21 09:49 98.0 F 82 18 113/69 96 08/06/21 09:37 96 08/06/21 07:31 80 18 125/82 97 08/06/21 06:04 98.2 F 95 18 139/93 97 Intake and Output 08/05/21 08/06/21 08/06/21 22:59 06:59 14:59 Other: Weight 80.739 kg 80.739 kg Results 08/06/21 07:30 08/06/21 07:30 Cardiac Enzymes 08/06/21 08/06/21 08/06/21 Range/Units 07:30 07:30 10:10 AST 21 (14-36) U/L Troponin I <0.012 <0.012 (0.000-0.034) ng/mL Coagulation 08/06/21 Range/Units 07:30 PT 10.7 (9.0-12.0) sec APTT 24.5 (22.0-30.0) sec CBC 08/06/21 Range/Units 07:30 WBC 6.0 (3.8-10.6) k/uL RBC 4.52 (3.80-5.40) m/uL Hgb 14.3 (11.4-16.0) gm/dL Hct 44.0 (34.0-46.0) % Plt Count 340 (150-450) k/uL Comprehensive Metabolic Panel 08/06/21 Range/Units 07:30 Sodium 136 L (137-145) mmol/L Potassium 4.3 (3.5-5.1) mmol/L Chloride 105 (98-107) mmol/L Carbon Dioxide 24 (22-30) mmol/L BUN 8 (7-17) mg/dL Creatinine 0.81 (0.52-1.04) mg/dL Glucose 106 H (74-99) mg/dL Calcium 9.8 (8.4-10.2) mg/dL AST 21 (14-36) U/L ALT 23 (4-34) U/L Alkaline Phosphatase 65 (38-126) U/L Total Protein 7.7 (6.3-8.2) g/dL Albumin 4.4 (3.5-5.0) g/dL Current Medications Generic Name Dose Route Start Last Admin Trade Name Freq PRN Reason Stop Dose Admin Ascorbic Acid 1,000 mg 08/07/21 09:00 Ascorbic Acid 500 Mg Tab PO DAILY [facility] Aspirin 325 mg 08/07/21 09:00 Aspirin 325 Mg Tab PO DAILY [facility] Cholecalciferol 125 mcg 08/07/21 09:00 Cholecalciferol 125 Mcg (5000 Iu) Tablet PO DAILY [facility] Fluoxetine HCl 10 mg 08/07/21 09:00 Fluoxetine Hcl 10 Mg Cap PO DAILY [facility] Lisinopril 20 mg 08/07/21 09:00 Lisinopril 20 Mg Tab PO DAILY [facility] Morphine Sulfate 4 mg 08/06/21 09:36 08/06/21 09:54 Morphine Sulfate 4 Mg/Ml Syringe IVP 4 mg Q6H PRN Administration Chest Pain Trazodone HCl 100 mg 08/06/21 09:38 Trazodone Hcl 100 Mg Tab PO HS PRN Insomnia Zinc Sulfate 220 mg 08/07/21 09:00 Zinc Sulfate 220 Mg Cap PO DAILY [facility] Intake and Output 08/05/21 08/06/21 08/06/21 22:59 06:59 14:59 Other: Weight 80.739 kg 80.739 kg Patient Weight 08/07/21 06:59 Weight 80.739 kg 08/06/21 07:30 08/06/21 07:30
[2021-08-06] MEDS ORDERED: ALPRAZolam 0.5 MG TAB PO STA (18:07)
[2021-08-06] MEDS: IBUPROFEN 400 MG TAB PO PRN (19:41)
[2021-08-07] MEDS ORDERED: ASCORBIC ACID 500 MG TAB PO SCH (09:00)
[2021-08-07] MEDS ORDERED: FLUoxetine HCL 10 MG CAP PO SCH (09:00)
[2021-08-07] MEDS ORDERED: lisinopriL 20 MG TAB PO SCH (09:00)
[2021-08-07] MEDS ORDERED: CHOLECALCIFEROL 125 MCG (5000 IU) TABLET PO SCH (09:00)
[2021-08-07] MEDS ORDERED: ASPIRIN 325 MG TAB PO SCH (09:00)
[2021-08-07] MEDS ORDERED: ZINC SULFATE 220 MG CAP PO SCH (09:00)
[2021-08-07] MEDS ORDERED: buPROPion SR 100 MG TABLET.ER PO SCH (10:30)
[2021-08-07 10:45] LABS: Chol/HDL Ratio 5.85 Ratio; LDL Cholesterol,Calculated 166.8 mg/dL (0.0-131.0)
--- NOTE | 2021-08-07 10:48 | ECHOF ---
Referral Reason:chest pain, palpitations MEASUREMENTS -------- HEIGHT: 157.5 cm WEIGHT: 80.7 kg BP: FINDINGS -------- Sinus rhythm. Limited Echo due to Covid 19 exposure. The left ventricular size is normal. Left ventricular wall thickness is normal. Overall left vent ricular systolic function is normal with, an EF between 55 - 60 %. The right ventricle is normal in size. The left atrial size is normal. No mitral regurgitation. There is no pericardial effusion. CONCLUSIONS -------- 1. Limited Echo due to Covid 19 exposure. 2. The left ventricular size is normal. 3. Overall left ventricular systolic function is normal with, an EF between 55 - 60 %. 4. The right ventricle is normal in size. 5. No mitral regurgitation. 6. There is no pericardial effusion. FLOOR SPACE ALLOCATOR: Jo Sin RDCS
[2021-08-07] MEDS: IBUPROFEN 400 MG TAB PO PRN (10:49)
[2021-08-07] MEDS ORDERED: ALPRAZolam 0.5 MG TAB PO STA (11:25)
--- NOTE | 2021-08-07 11:33 | P.PN ---
Subjective Progress Note Date: 08/07/21 HISTORY OF PRESENTING ILLNESS This is a pleasant 41-year-old female past medical history significant for a nxiety and hypertension. She does not follow with a web solutions architect. We have been asked to see in consultation for chest pain. Patient presents emergency department with complaints of palpitations and chest pain. Shes states she has been having intermittent chest pain and palpitations for almost a year. She states the chest pain is in the center of her chest, it comes and goes. She usually gets the palpitations and chest discomfort together, about once per day. She previously had Covid last year and states that her chest pain and palpitations have worsened since being diagnosed with Covid. She states when she gets the chest pain and palpitations that last about 34 minutes and resolves on its own. She states that she's been having difficulty with anxiety over the past year and has been difficult to control. She also has noticed it being worse at night and having difficulty sleeping. She has been taking Wellbutrin, and is currently getting tapered off.. And has been tried Paxil and trazodone, with not much relief. Her chest pain, it is nonradiating, nonexertional. She denies any associated diaphoresis, shortness of breath, nausea, vomiting, lightheadedness or dizziness. She does endorse a cough today. Her chest pain has resolved. She denies any history of [place], CAD, diabetes, stroke. DIAGNOSTICS EKG reveals sinus rhythm, heart rate 89,no significant STT abnormalities. Telemetry tracings indicate sinus mechanism, heart rate in the 80s, no arrhythmia noted. Chest xray no acute cardiopulmonary process, no pneumonia. Laboratory reviewed, CBC unremarkable, troponin negative 3, proBNP less than 11, d-dimer negative, sodium 136, potassium 4.3, BUN 8, serum creatinine 0.8, ma gnesium 2.1 Current home medications include lisinopril 20 mg daily, Prozac 10 mg daily, Wellbutrin taper , trazodone at night 08/07: Echocardiogram reveals EF of 55-60%, no mitral regurgitation. Limited echo was done due to Covid 19 exposure. Patient denies having any chest pain. She is complaining of significant anxiety. We will add in one dose of Xanax. Patient will be cleared for discharge from cardiology with plan for outpatient follow-up. PHYSICAL EXAMINATION Blood pressure 128/89, heart rate 91, afebrile, pulse ox 98% on room air CONSTITUTIONAL: No apparent distress. Physical examination deferred due to Covid 19 isolation NEUROLOGIC EXAMINATION: Patient is awake, alert and oriented x3. ASSESSMENT Chest pain, atypical, does not appear to be cardiac etiology, possibly related to anxiety, acute coronary syndrome has been ruled out Palpitations Generalized anxiety disorder History of hypertension PLAN 1 dose of Xanax ordered. Patient is cleared for discharge from cardiology with plan for outpatient follow-up Thank you kindly for this consultation. Nurse Practitioner note has been reviewed, I agree with a documented findings and plan of care. Patient was seen and examined. Objective - Vital Signs Vital signs: Vital Signs Temp 97.8 F 08/07/21 01:33 Pulse 75 08/07/21 01:33 Resp 20 08/07/21 01:33 BP 109/71 08/07/21 01:33 Pulse Ox 97 08/07/21 01:33 Intake & Output 08/06/21 08/07/21 08/07/21 18:59 06:59 18:59 Intake Total 118 360 Balance 118 360 Weight 80.739 kg Intake: Oral 118 360 Other: # Voids 3 2 0 - Labs CBC & Chem 7: 08/06/21 07:30 08/06/21 07:30 Labs: Abnormal Lab Results - Last 24 Hours (Table) 08/06/21 Range/Units 07:30 Triglycerides 169.00 H (0.00-149.00) mg/dL Cholesterol 242.00 H (0.00-200.00) mg/dL LDL Cholesterol, Calc 166.8 H (0.0-131.0) mg/dL
--- NOTE | 2021-08-07 12:05 | P.DS ---
Providers Date of admission: 08/06/21 09:37 Expected date of discharge: 08/07/21 Attending physician: Kalyn Clark MD Consults: 08/06/21 09:36 Consult Physician Routine Consulting Provider: [facility] Consult Reason/Comments: chest pain Do you want consulting provider notified?: Yes Primary care physician: Stated None Hospital Course: 41-year-old female with a past medical history of hypertension, GERD and anxiety presents to the emergency room for a chief complaint of chest pain. Patient states she has had a squeezing/achy pain in the center of her chest since last night around 7:30 PM. Patient reports it does radiate to her upper back slightly. Patient states that she had problem with anxiety for the last 2 years, and it has been difficult for her to control it. She has been taking welbutrin and just yesterday her PCP added paxil and trazodone. Patient was told to taper off Wellbutrin for several days. Chest pain has been on and off for the past couple months. Had associated nausea and vomiting yesterday, also started having a cough. Patient denies diaphoresis. Denies pain worsening with exertion. No other complaints including shortness of breath, abdominal pain, nausea or vomiting, headache, or visual changes. In the emergency department troponins tested negative. Rest of the labs were unremarkable. However she tested positive for covid. Patient continued to have chest discomfort throughout the admission. Resting pain. Troponin was cycled and remained negative. Acute myocardial infarction was ruled out. Patient also describes acid reflux symptoms over the past several months. She was told about the lifestyle changes that she could make to improve that and maybe to improve her chest discomfort. She was seen by cardiology who recommended an echocardiogram and outpatient follow-up. Echocardiogram came back unremarkable. She was cleared by cardiology for discharge. She will be discharged home in stable condition. Plan - Discharge Summary Discharge Rx Participant: Yes New Discharge Prescriptions: New buPROPion SR [Wellbutrin SR] 100 mg PO Q48H 10 Days #5 tablet Continue traZODone HCL [Desyrel] 100 mg PO HS PRN PRN Reason: Insomnia lisinopriL [Zestril] 20 mg PO DAILY FLUoxetine HCL [PROzac] 10 mg PO DAILY Zinc 50 mg PO DAILY Ascorbic Acid [Vitamin C] 1,000 mg PO DAILY Cholecalciferol [Vitamin D3 (125 Mcg = 5000 Iu)] 125 mcg PO DAILY Discontinued buPROPion HCL [Wellbutrin SR] See Taper PO DAILY Discharge Medication List Ascorbic Acid [Vitamin C] 1,000 mg PO DAILY 08/06/21 [History] Cholecalciferol [Vitamin D3 (125 Mcg = 5000 Iu)] 125 mcg PO DAILY 08/06/21 [History] FLUoxetine HCL [PROzac] 10 mg PO DAILY 08/06/21 [History] Zinc 50 mg PO DAILY 08/06/21 [History] lisinopriL [Zestril] 20 mg PO DAILY 08/06/21 [History] traZODone HCL [Desyrel] 100 mg PO HS PRN 08/06/21 [History] buPROPion SR [Wellbutrin SR] 100 mg PO Q48H 10 Days #5 tablet 08/07/21 [Rx] Follow up Appointment(s)/Referral(s): Cipriano Murphy DO [STAFF PHYSICIAN] - 3 Weeks None,Stated [Primary Care Provider] - 1-2 days
[2021-08-07 12:10] VITALS: BP 128/89; PULSE 91; RESP 18; TEMP 97.9
== END 2021-08-07 12:47 | disposition home or self-care (01) ==
LOC: EC 05:58 → 1SOBS 09:37 → 6NMEDSUR 14:09
PROVIDERS: ADMIT Internal Medicine; ATTEND Internal Medicine
DX: U07.1 COVID-19 (principal); F41.1 Generalized anxiety disorder; I10 Essential (primary) hypertension; R00.2 Palpitations; G47.9 Sleep disorder, unspecified; K21.9 Gastro-esophageal reflux disease without esophagitis; R11.2 Nausea with vomiting, unspecified; F32.A Depression, unspecified; F17.290 Nicotine dependence, other tobacco product, uncomplicated; Z79.899 Other long term (current) drug therapy; Z86.16 Personal history of COVID-19; Z98.51 Tubal ligation status; Z98.890 Other specified postprocedural states
CPT/HCPCS: 96361; 96374; 96375; 99285; 36415; 93005; 93308; 85379; 83880; 80061; 80053; 84443; 83690; 83735; 84484; 85025; 85610; 85730; 84703; 87635; 71046; G0378 ×3; J2060; J2270; S0106

== ENCOUNTER → 2021-09-06 | Outpatient (CLI) | payer MEDICAID ==
--- NOTE | 2021-09-07 11:02 | MM ---
Reason for exam: screening (asymptomatic). Baseline mammogram. History: Family history of breast cancer in paternal grandmother at age 50 and breast cancer in paternal aunt at age 35. Physical Findings: Nurse did not find any significant physical abnormalities on exam. MG 3D Screening Mammo W/Cad Bilateral CC and MLO view(s) were taken. There are scattered fibroglandular densities. There is no discrete abnormality. ASSESSMENT: Benign, BI-RAD 2 RECOMMENDATION: Routine screening mammogram of both breasts in 1 year.
== END | disposition home or self-care (01) ==
LOC: RADMAMWWP 14:15
PROVIDERS: ATTEND Family Medicine
DX: Z12.31 Encounter for screening mammogram for malignant neoplasm of breast (principal); Z80.3 Family history of malignant neoplasm of breast
CPT/HCPCS: 77063; 77067

== ENCOUNTER → 2021-09-16 | Outpatient (CLI) | payer MEDICAID ==
--- NOTE | 2021-09-16 13:50 | EST ---
EXERCISE STRESS AGE: 41 SEX: F HT: 5'2" WT: 176 lbs. PROTOCOL: Ashish STAGE: 3 DURATION OF EXERCISE: 9:00 HEART RATE REST: 88 BLOOD PRESSURE REST: 113/87 MAXIMUM HEART RATE ACHIEVED: 168 MAXIMUM BLOOD PRESSURE: 207/90 85% MPHR: 152 100% MPHR: 179 METS: 10.3 INDICATIONS: Chest pain. CLINICAL INFORMATION: Baseline rhythm is sinus mechanism, rate of 88, normal axis and intervals. Normal echocardiogram. Baseline blood pressure 113/87 mmHg. Patient exercised on Ashish protocol for 9 minutes, reaching peak rate of 168 beats per minute, which is equal to 94% of maximum predicted heart rate. Test was terminated secondary to fatigue. The patient had chest discomfort and dyspnea at peak exercise. Electrocardiographic monitoring revealed rare PVCs. There was no evidence of diagnostic ischemic ST deviation. RESULTS: 1. Average exercise tolerance with normal echocardiograph response to exercise. 2. Episode of chest discomfort of unclear etiology. 3. Normal electrocardiograph response to exercise with no evidence of exercise-induced ischemia. MMODL / IJN: [id number] /
== END | disposition home or self-care (01) ==
LOC: RADNMMAIN 08:34
PROVIDERS: ATTEND Family Medicine
DX: R07.89 Other chest pain (principal)
CPT/HCPCS: 93017

== ENCOUNTER 2023-09-17 01:50 | Emergency (ER) | payer MEDICAID ==
[2023-09-17 01:57] VITALS: TEMP 97.3
[2023-09-17 02:08] LABS: Glucose,Whole Blood 113 mg/dL (70-110)
--- NOTE | 2023-09-17 02:25 | ED ---
General Adult HPI - General Chief complaint: Syncope Stated complaint: syncope Time Seen by Provider: 09/17/23 01:54 Source: patient, EMS Mode of arrival: EMS - History of Present Illness Initial comments: Dictation was produced using [employer] dictation software. please excuse any gra mmatical, word or spelling errors. Chief Complaint: 43-year-old female past medical history of hypertension, bipolar disease presents to the ER after episode of syncope History of Present Illness: Patient 43-year-old female she has no significant comorbidities. She has been feeling unwell for the last couple days. States that she has not feel like she has been drinking enough fluids. She has been on the go helping friends and family. She was watching a movie with her and. She got up to go and get some water when Portuguese she remembers was that she was on the floor. states that he heard a loud thud then approximately 30 seconds later he realized that patient had just woken up off the floor. She did not appear to be in any sort of postictal state. EMS was called patient was found to be diaphoretic. She had a normal blood glucose. Patient given some IV fluids and now at the bedside patient feels close to baseline. The ROS documented in this emergency department record has been reviewed and confirmed by me. Those systems with pertinent positive or negative responses have been documented in the HPI. All other systems are other negative and/or noncontributory. - Related Data Home Medications Medication Instructions Recorded Confirmed Ascorbic Acid [Vitamin C] 1,000 mg PO DAILY 08/06/21 08/06/21 Cholecalciferol [Vitamin D3 (125 125 mcg PO DAILY 08/06/21 08/06/21 Mcg = 5000 Iu)] FLUoxetine HCL [PROzac] 10 mg PO DAILY 08/06/21 08/06/21 Zinc 50 mg PO DAILY 08/06/21 08/06/21 lisinopriL [Zestril] 20 mg PO DAILY 08/06/21 08/06/21 traZODone HCL [Desyrel] 100 mg PO HS PRN 08/06/21 08/06/21 Previous Rx's Medication Instructions Recorded buPROPion SR [Wellbutrin SR] 100 mg PO Q48H 10 Days #5 tablet 08/07/21 Allergies Allergy/AdvReac Type Severity Reaction Status Date / Time No Known Allergies Allergy Verified 08/06/21 09:21 Review of Systems ROS Statement: Those systems with pertinent positive or pertinent negative responses have been documented in the HPI. ROS Other: All systems not noted in ROS Statement are negative. Past Medical History Past Medical History: Hypertension History of Any Multi-Drug Resistant Organisms: None Reported Past Surgical History: Tubal Ligation Additional Past Surgical History / Comment(s): bunionectomy Past Anesthesia/Blood Transfusion Reactions: No Reported Reaction Past Psychological History: Anxiety Smoking Status: Vaper Past Alcohol Use History: Occasional Past Drug Use History: None Reported General Exam - General Exam Comments Initial Comments: PHYSICAL EXAM: General Impression: Alert and oriented x3, not in acute distress HEENT: Normocephalic atraumatic, extra-ocular movements intact, pupils equal and reactive to light bilaterally, mucous membranes moist. Cardiovascular: Heart regular rate and rhythm Chest: Able to complete full sentences, no retractions, no tachypnea Abdomen: abdomen soft, non-tender, non-distended, no organomegaly Musculoskeletal: Pulses present and equal in all extremities, no peripheral edema Motor: no focal deficits noted Neurological: CN II-XII grossly intact, no focal motor or sensory deficits noted Skin: Intact with no visualized rashes Psych: Normal affect and mood Course Vital Signs 09/17/23 01:52 Temperature 97.3 F L Pulse Rate 78 Respiratory 19 Rate Blood Pressure 111/88 O2 Sat by Pulse 99 Oximetry Medical Decision Making - Medical Decision Making Was pt. sent in by a medical professional or institution (, PA, BUN ICER, urgent care, hospital, or halfway...) When possible be specific @ -No Did you speak to anyone other than the patient for history (EMS, parent, family, police, friend...)? What history was obtained from this source @ -No Did you review nursing and triage notes (agree or disagree)? Why? @ -I reviewed and agree with nursing and triage notes Were old charts reviewed (outside hosp., previous admission, EMS record, old EKG, old radiological studies, urgent care reports/EKG's, halfway records)? Report findings @ -No old charts were reviewed Differential Diagnosis (chest pain, altered mental status, abdominal pain women, abdominal pain men, vaginal bleeding, musculoskeletal, weakness, fever, dyspnea, syncope, headache, dizziness, GI bleed, back pain, seizure, CVA, palpatations, mental health)? @ -Differential Syncope: Valvular disease, hypertrophic cardiomyopathy, pulmonary embolism, tamponade, tachycardia, bradycardia, OR, hypovolemia, hemorrhage, dissection, anemia, intr acranial hemorrhage, seizure, hypoglycemia, carbon monoxide poisoning, this is not meant to be an all-inclusive list. EKG interpreted by me (3pts min.). @ -See above X-rays interpreted by me (1pt min.). @ -Chest x-ray shows no acute processes CT interpreted by me (1pt min.). @ -None done U/S interpreted by me (1pt. min.). @ -None done What testing was considered but not performed or refused? (CT, X-rays, U/S, labs)? Why? @ -None What meds were considered but not given or refused? Why? @ -None Did you discuss the management of the patient with other professionals (professionals i.e. , PA, BUN ICER, lab, RT, psych nurse, social studies department chair, vp genetic, teacher, air intelligence officer, case specialist)? Give summary @ -No Was smoking cessation discussed for >3mins.? @ -No Was critical care preformed (if so, how long)? @ -No Were there social determinants of health that impacted care today? How? (Homeles sness, low income, unemployed, alcoholism, drug addiction, transportation, low edu. Level, literacy, decrease access to med. care, snf, rehab)? @ -No Was there de-escalation of care discussed even if they declined (Discuss DNR or withdrawal of care, Hospice)? DNR status @ -No What co-morbidities impacted this encounter? (DM, HTN, Smoking, COPD, CAD, Cancer, CVA, ARF, Chemo, Hep., AIDS, mental health diagnosis, sleep apnea, morbid obesity)? @ -None Was patient admitted / discharged? Hospital course, mention meds given and route, prescriptions, significant lab abnormalities, going to OR and other pertinent info. @ -43-year-old female with no significant comorbidities presents after syncopal episode. Vital signs upon arrival are within acceptable limits. Patient well- appearing at bedside. Physical examination is benign. Laboratory evaluation is unremarkable. CBC, metabolic panel is negative. Patient observed emergency department for approximately 2 hours. She felt fine with trial ambulation at 4:00 AM. Patient has no high risk features. She has no history of cardiac illness. Patient discharged. Undiagnosed new problem with uncertain prognosis? @ -No Drug Therapy requiring intensive monitoring for toxicity (Heparin, Nitro, Insulin, Cardizem)? @ -No Were any procedures done? @ -No Diagnosis/symptom? Acute, or Chronic, or Acute on Chronic? Uncomplicated (without systemic symptoms) or Complicated (systemic symptoms)? @ -Syncope, no high risk features Side effects of treatment? @ -No Exacerbation, Progression, or Severe Exacerbation? @ -No Poses a threat to life or bodily function? How? (Chest pain, [place], [place], pneumonia, PE, COPD, DKA, ARF, appy, cholecystitis, CVA, Diverticulitis, Homicidal, Suicidal, threat to staff... and all critical care pts) @ -No - Lab Data Result diagrams: 09/17/23 02:31 09/17/23 02:31 Lab Results 09/17/23 09/17/23 09/17/23 Range/Units 02:07 02:31 02:31 WBC 8.3 (3.8-10.6) k/uL RBC 4.34 (3.80-5.40) m/uL Hgb 13.6 (11.4-16.0) gm/dL Hct 41.4 (34.0-46.0) % MCV 95.3 (80.0-100.0) fL MCH 31.4 (25.0-35.0) pg MCHC 33.0 (31.0-37.0) g/dL RDW 12.1 (11.5-15.5) % Plt Count 364 (150-450) k/uL MPV 6.9 Neutrophils % 46 % Lymphocytes % 43 % Monocytes % 6 % Eosinophils % 2 % Basophils % 1 % Neutrophils # 3.8 (1.3-7.7) k/uL Lymphocytes # 3.6 (1.0-4.8) k/uL Monocytes # 0.5 (0-1.0) k/uL Eosinophils # 0.2 (0-0.7) k/uL Basophils # 0.1 (0-0.2) k/uL Sodium 137 (137-145) mmol/L Potassium 3.5 (3.5-5.1) mmol/L Chloride 104 (98-107) mmol/L Carbon Dioxide 24 (22-30) mmol/L Anion Gap 9 mmol/L BUN 12 (7-17) mg/dL Creatinine 0.72 (0.52-1.04) mg/dL Est GFR (CKD-EPI)AfAm >90 (>60 ml/min/1.73 sqM) Est GFR (CKD-EPI)NonAf >90 (>60 ml/min/1.73 sqM) Glucose 107 H (74-99) mg/dL POC Glucose (mg/dL) 113 H (70-110) mg/dL POC Glu Assistant Professor Of Chemistry ID Aysha Barron Plasma Lactic Acid Daniel (0.7-2.0) mmol/L Calcium 9.0 (8.4-10.2) mg/dL Magnesium 2.2 (1.6-2.3) mg/dL Total Bilirubin 0.5 (0.2-1.3) mg/dL AST 28 (14-36) U/L ALT 30 (4-34) U/L Alkaline Phosphatase 57 (38-126) U/L Total Protein 7.2 (6.3-8.2) g/dL Albumin 4.2 (3.5-5.0) g/dL 09/17/23 Range/Units 02:31 WBC (3.8-10.6) k/uL RBC (3.80-5.40) m/uL Hgb (11.4-16.0) gm/dL Hct (34.0-46.0) % MCV (80.0-100.0) fL MCH (25.0-35.0) pg MCHC (31.0-37.0) g/dL RDW (11.5-15.5) % Plt Count (150-450) k/uL MPV Neutrophils % % Lymphocytes % % Monocytes % % Eosinophils % % Basophils % % Neutrophils # (1.3-7.7) k/uL Lymphocytes # (1.0-4.8) k/uL Monocytes # (0-1.0) k/uL Eosinophils # (0-0.7) k/uL Basophils # (0-0.2) k/uL Sodium (137-145) mmol/L Potassium (3.5-5.1) mmol/L Chloride (98-107) mmol/L Carbon Dioxide (22-30) mmol/L Anion Gap mmol/L BUN (7-17) mg/dL Creatinine (0.52-1.04) mg/dL Est GFR (CKD-EPI)AfAm (>60 ml/min/1.73 sqM) Est GFR (CKD-EPI)NonAf (>60 ml/min/1.73 sqM) Glucose (74-99) mg/dL POC Glucose (mg/dL) (70-110) mg/dL POC Glu Assistant Professor Of Chemistry ID Plasma Lactic Acid Daniel 2.0 (0.7-2.0) mmol/L Calcium (8.4-10.2) mg/dL Magnesium (1.6-2.3) mg/dL Total Bilirubin (0.2-1.3) mg/dL AST (14-36) U/L ALT (4-34) U/L Alkaline Phosphatase (38-126) U/L Total Protein (6.3-8.2) g/dL Albumin (3.5-5.0) g/dL Disposition Clinical Impression: Syncope Disposition: HOME SELF-CARE Condition: Good Instructions (If sedation given, give patient instructions): Syncope (ED) Is patient prescribed a controlled substance at d/c from ED?: No Referrals: David Serrano MD [Primary Care Provider] - 1-2 days Time of Disposition: 03:57
[2023-09-17] MEDS: SODIUM CHLORIDE 0.9% 1,000 ML IV STA (02:31)
[2023-09-17 02:59] LABS: ALT 30 U/L (4-34); AST 28 U/L (14-36); African American GFR (CKD) >90 (>60 ml/min/1.73 sqM); Albumin 4.2 g/dL (3.5-5.0); Alkaline Phosphatase 57 U/L (38-126); Anion Gap 9 mmol/L; Blood Urea Nitrogen 12 mg/dL (7-17); Carbon Dioxide 24 mmol/L (22-30); Chloride 104 mmol/L (98-107); Glucose 107 mg/dL (74-99); Magnesium 2.2 mg/dL (1.6-2.3); Non-African American GFR(CKD) >90 (>60 ml/min/1.73 sqM); Potassium 3.5 mmol/L (3.5-5.1); Sodium 137 mmol/L (137-145); Total Bilirubin 0.5 mg/dL (0.2-1.3); Total Protein 7.2 g/dL (6.3-8.2)
[2023-09-17 03:00] LABS: Basophils # (A) 0.1 k/uL (0-0.2); Basophils % (A) 1 %; Eosinophils # (A) 0.2 k/uL (0-0.7); Eosinophils % (A) 2 %; HCT 41.4 % (34.0-46.0); HGB 13.6 gm/dL (11.4-16.0); Lymphocytes # (A) 3.6 k/uL (1.0-4.8); Lymphocytes % (A) 43 %; MCH 31.4 pg (25.0-35.0); MCV 95.3 fL (80.0-100.0); Mean Platelet Volume 6.9; Monocytes # (A) 0.5 k/uL (0-1.0); Monocytes % (A) 6 %; Neutrophils # (A) 3.8 k/uL (1.3-7.7); Neutrophils % (A) 46 %; Platelet Count 364 k/uL (150-450); RBC 4.34 m/uL (3.80-5.40); RDW 12.1 % (11.5-15.5); WBC 8.3 k/uL (3.8-10.6)
--- NOTE | 2023-09-17 03:10 | XR ---
EXAM: XR Chest, 1 View CLINICAL HISTORY: XR Reason: syncope TECHNIQUE: Frontal view of the chest. COMPARISON: August 06, 2021 FINDINGS: Lungs: Unremarkable. No consolidation. Pleural space: Unremarkable. No pneumothorax. Heart: Unremarkable. No cardiomegaly. Mediastinum: Unremarkable. Normal mediastinal contour. Bones/joints: Unremarkable. No acute fracture. IMPRESSION: No acute cardiopulmonary process is identified.
[2023-09-17 04:29] VITALS: BP 124/76; PULSE 80; RESP 17
== END 2023-09-17 04:09 | disposition home or self-care (01) ==
LOC: EC 01:50
DX: R55 Syncope and collapse (principal); I10 Essential (primary) hypertension; F17.290 Nicotine dependence, other tobacco product, uncomplicated; F41.9 Anxiety disorder, unspecified; F31.9 Bipolar disorder, unspecified; Z79.899 Other long term (current) drug therapy
CPT/HCPCS: 36415; 71045; 80053; 83605; 83735; 85025; 93005; 96360; 99285

== ENCOUNTER 2023-10-23 22:04 | Emergency (ER) | payer MEDICAID ==
[2023-10-23 22:16] VITALS: BP 141/90; PULSE 74; RESP 19; TEMP 97.8
--- NOTE | 2023-10-23 22:17 | ED ---
ENT HPI - General Chief complaint: Dental/Oral Stated complaint: Tooth pain and right ear pain Time Seen by Provider: 10/23/23 22:17 Source: patient, RN notes reviewed Mode of arrival: ambulatory - History of Present Illness Initial comments: 43-year-old female presents emergency department chief complaint of right sided dental pain and ear pain. She states that a filling fell out roughly 2 years ago left lower mandibular molar, but states that she has been experiencing pain of her right mandible and radiating into her ear over the past 3 days. Patient denies fevers, chest pain, shortness of breath. States that she has been cycling Tylenol at home [id number] over the past 2 days with minimal relief, and states that she has taken 1 dose of her daughters amoxicillin this morning. States that she has an appointment at 8 AM in the morning with a dentist for further evaluation. - Related Data Home Medications Medication Instructions Recorded Confirmed Ascorbic Acid [Vitamin C] 1,000 mg PO DAILY 08/06/21 08/06/21 Cholecalciferol [Vitamin D3 (125 125 mcg PO DAILY 08/06/21 08/06/21 Mcg = 5000 Iu)] FLUoxetine HCL [PROzac] 10 mg PO DAILY 08/06/21 08/06/21 Zinc 50 mg PO DAILY 08/06/21 08/06/21 lisinopriL [Zestril] 20 mg PO DAILY 08/06/21 08/06/21 traZODone HCL [Desyrel] 100 mg PO HS PRN 08/06/21 08/06/21 Previous Rx's Medication Instructions Recorded buPROPion SR [Wellbutrin SR] 100 mg PO Q48H 10 Days #5 tablet 08/07/21 Allergies Allergy/AdvReac Type Severity Reaction Status Date / Time No Known Allergies Allergy Verified 10/23/23 22:10 Review of Systems ROS Statement: Those systems with pertinent positive or pertinent negative responses have been documented in the HPI. ROS Other: All systems not noted in ROS Statement are negative. Past Medical History Past Medical History: Hypertension History of Any Multi-Drug Resistant Organisms: None Reported Past Surgical History: Tubal Ligation Additional Past Surgical History / Comment(s): bunionectomy Past Anesthesia/Blood Transfusion Reactions: No Reported Reaction Past Psychological History: Anxiety Smoking Status: Vaper Past Alcohol Use History: Occasional Past Drug Use History: None Reported General Exam General appearance: alert, in no apparent distress Head exam: Present: atraumatic, normocephalic, normal inspection Eye exam: Present: normal appearance, PERRL, EOMI. Absent: scleral icterus, conjunctival injection, periorbital swelling ENT exam: Present: normal exam, mucous membranes moist, other (tenderness to palpation of tragus and external ear, canal and TM unremarkable for signs of infection. negative mastoid tenderness) Expanded Teeth exam: Present: dental caries, fractured tooth #, dental tenderness #, other (For dentition, multiple dental caries and dental fractures, point tenderness over the #29 tooth pain that radiates into the ear on physical exam, no area of abscess noted) Throat exam: normal inspection. negative: tonsillar erythema, tonsillomegaly Neck exam: Present: normal inspection. Absent: tenderness, meningismus, lymphadenopathy Respiratory exam: Present: normal lung sounds bilaterally. Absent: respiratory distress, wheezes, rales, rhonchi, stridor Cardiovascular Exam: Present: regular rate, normal rhythm, normal heart sounds. Absent: systolic murmur, diastolic murmur, rubs, gallop, clicks GI/Abdominal exam: Present: soft, normal bowel sounds. Absent: distended, tenderness, guarding, rebound, rigid Extremities exam: Present: normal inspection, full ROM, normal capillary refill. Absent: tenderness, pedal edema, joint swelling, calf tenderness Back exam: Present: normal inspection Neurological exam: Present: alert, oriented X3, CN II-XII intact Psychiatric exam: Present: normal affect, normal mood Skin exam: Present: warm, dry, intact, normal color. Absent: rash Course Vital Signs 10/23/23 22:10 Temperature 97.8 F Pulse Rate 74 Respiratory 19 Rate Blood Pressure 141/90 O2 Sat by Pulse 100 Oximetry Medical Decision Making - Medical Decision Making Was pt. sent in by a medical professional or institution (, PA, ENROLLMENT REPRESENTATIVE, urgent care, hospital, or fci...) When possible be specific @ -No Did you speak to anyone other than the patient for history (EMS, parent, family, police, friend...)? What history was obtained from this source @ -No Did you review nursing and triage notes (agree or disagree)? Why? @ -I reviewed and agree with nursing and triage notes Were old charts reviewed (outside hosp., previous admission, EMS record, old EKG, old radiological studies, urgent care reports/EKG's, fci records)? Report findings @ -No old charts were reviewed Differential Diagnosis (chest pain, altered mental status, abdominal pain women, abdominal pain men, vaginal bleeding, weakness, fever, dyspnea, syncope, headache, dizziness, GI bleed, back pain, seizure, CVA, palpatations, mental health, musculoskeletal)? @ -dental caries, dental abscess, fractured tooth, pulpitis EKG interpreted by me (3pts min.). @ -None X-rays interpreted by me (1pt min.). @ -None done CT interpreted by me (1pt min.). @ -None done U/S interpreted by me (1pt. min.). @ -None done What testing was considered but not performed or refused? (CT, X-rays, U/S, labs)? Why? @ -None What meds were considered but not given or refused? Why? @ -None Did you discuss the management of the patient with other professionals (professionals i.e. , PA, ENROLLMENT REPRESENTATIVE, lab, RT, psych nurse, licensed social worker, creative developer, teacher, weapons electrical engineering officer, adult protective caseworker)? Give summary @ -No Was smoking cessation discussed for >3mins.? @ -No Was critical care preformed (if so, how long)? @ -No Were there social determinants of health that impacted care today? How? (Homelessness, low income, unemployed, alcoholism, drug addiction, transportation, low edu. Level, literacy, decrease access to med. care, shelter, rehab)? @ -No Was there de-escalation of care discussed even if they declined (Discuss DNR or withdrawal of care, Hospice)? DNR status @ -No What co-morbidities impacted this encounter? (DM, HTN, Smoking, COPD, CAD, Cancer, CVA, ARF, Chemo, Hep., AIDS, mental health diagnosis, sleep apnea, morbid obesity)? @ -None Was patient admitted / discharged? Hospital course, mention meds given and route, prescriptions, significant lab abnormalities, going to OR and other pertinent info. @ -Discharged. 43-year-old female with right sided dental pain. Patient has been cycling Tylenol and Motrin at home [id number] without symptomatic relief. Patient given IM dose of Toradol and morphine in the emergency department. Physical exam on oropharynx remarkable with multiple dental carries and point tenderness over the right mandibular molar ilicits radiating pain to the ear, no area of abscess. Patient's pain has improved after administration of medication. Is to follow-up in the morning with her dentist for further eval uation. I discussed this case with my attending, Dr. Arreola, agreeable with the plan and discharge. Undiagnosed new problem with uncertain prognosis? @ -No Drug Therapy requiring intensive monitoring for toxicity (Heparin, Nitro, Insulin, Cardizem)? @ -No Were any procedures done? @ -No Diagnosis/symptom? @ -dental caries, dental pain Acute, or Chronic, or Acute on Chronic? @ -acute Uncomplicated (without systemic symptoms) or Complicated (systemic symptoms)? @ -Uncomplicated Side effects of treatment? @ -No Exacerbation, Progression, or Severe Exacerbation? @ -No Poses a threat to life or bodily function? How? (Chest pain, [place], [place], pneumonia, PE, COPD, DKA, ARF, appy, cholecystitis, CVA, Diverticulitis, Homicidal, Suicidal, threat to staff... and all critical care pts) @ -Unlikely Disposition Clinical Impression: Pain due to dental caries Narrative: Please return to the Emergency Department if symptoms worsen or any other concerns. Follow-up with dentist in the morning for further evaluation. Disposition: HOME SELF-CARE Condition: Good Instructions (If sedation given, give patient instructions): Toothache (ED) Is patient prescribed a controlled substance at d/c from ED?: No Referrals: David Serrano MD [Primary Care Provider] - 1-2 days Time of Disposition: 22:32
[2023-10-23] MEDS: MORPHINE SULFATE 2 MG/ML SYRINGE IM ONE (22:33)
[2023-10-23] MEDS: KETOROLAC 15 MG/ML 1 ML VIAL IM STA (22:36)
== END 2023-10-23 23:01 | disposition home or self-care (01) ==
LOC: EC 22:04
DX: K02.9 Dental caries, unspecified (principal); F17.290 Nicotine dependence, other tobacco product, uncomplicated
CPT/HCPCS: 96372 ×2; 99283; J2270; J1885

== ENCOUNTER 2024-11-02 23:28 | Emergency (ER) | payer MEDICAID ==
[2024-11-02 23:32] VITALS: RESP 20
[2024-11-02] MEDS: ALBUTEROL NEBULIZED 2.5 MG/3 ML INHALATION STA (23:50)
[2024-11-02] MEDS: IPRATROPIUM-ALBUTEROL 3 ML NEB INHALATION STA (23:50)
[2024-11-02] MEDS: DEXAMETHASONE SOD PHOSPHATE 10 MG/ML 1 ML VIAL IM STA (23:54)
--- NOTE | 2024-11-03 00:09 | ED ---
General Adult HPI - General Chief complaint: Shortness of Breath Stated complaint: Wheezing Time Seen by Provider: 11/02/24 23:34 Source: patient, RN notes reviewed, old records reviewed Mode of arrival: ambulatory Limitations: no limitations - History of Present Illness Initial comments: 44 female history of asthma presenting with cough and dyspnea. Patient states she used albuterol at home but believes that the vitals were . 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 She has had some upper respiratory symptoms as well. No fever. No chest pain. - Related Data Home Medications Medication Instructions Recorded Confirmed Ascorbic Acid [Vitamin C] 1,000 mg PO DAILY 08/06/21 08/06/21 Cholecalciferol [Vitamin D3 (125 125 mcg PO DAILY 08/06/21 08/06/21 Mcg = 5000 Iu)] FLUoxetine HCL [PROzac] 10 mg PO DAILY 08/06/21 08/06/21 Zinc 50 mg PO DAILY 08/06/21 08/06/21 lisinopriL [Zestril] 20 mg PO DAILY 08/06/21 08/06/21 traZODone HCL [Desyrel] 100 mg PO HS PRN 08/06/21 08/06/21 Previous Rx's Medication Instructions Recorded buPROPion SR [Wellbutrin SR] 100 mg PO Q48H 10 Days #5 tablet 08/07/21 Albuterol Inhaler [Ventolin Hfa 1 - 2 puff INHALATION Q4HR PRN #1 11/03/24 Inhaler] each Albuterol Nebulized [Ventolin 2.5 mg INHALATION Q4H #75 ml 11/03/24 Nebulized] Loratadine [Claritin] 10 mg PO DAILY #30 tab 11/03/24 predniSONE 50 mg PO DAILY #5 tab 11/03/24 Allergies Allergy/AdvReac Type Severity Reaction Status Date / Time No Known Allergies Allergy Verified 11/02/24 23:32 Review of Systems ROS Statement: Those systems with pertinent positive or pertinent negative responses have been documented in the HPI. ROS Other: All systems not noted in ROS Statement are negative. Past Medical History Past Medical History: Asthma, Hypertension History of Any Multi-Drug Resistant Organisms: None Reported Past Surgical History: Tubal Ligation Additional Past Surgical History / Comment(s): bunionectomy Past Anesthesia/Blood Transfusion Reactions: No Reported Reaction Past Psychological History: Anxiety, Panic Disorder Smoking Status: Vaper Past Alcohol Use History: Occasional Past Drug Use History: None Reported General Exam Limitations: no limitations General appearance: alert, in no apparent distress Head exam: Present: atraumatic, normocephalic Eye exam: Present: normal appearance, PERRL ENT exam: Present: normal exam Neck exam: Present: normal inspection. Absent: tenderness, meningismus Respiratory exam: Present: wheezes, decreased breath sounds, prolonged expiratory. Absent: respiratory distress Cardiovascular Exam: Present: regular rate, normal rhythm GI/Abdominal exam: Present: soft. Absent: distended, tenderness, guarding Neurological exam: Present: alert, oriented X3, CN II-XII intact. Absent: motor sensory deficit Psychiatric exam: Present: anxious Skin exam: Present: warm, dry, intact. Absent: cyanosis, diaphoretic Course Vital Signs 11/02/24 11/02/24 11/03/24 23:29 23:50 00:05 Temperature 97.4 F L Pulse Rate 103 H 90 92 Respiratory 20 Rate Blood Pressure 146/89 O2 Sat by Pulse 100 Oximetry 11/03/24 11/03/24 11/03/24 01:27 01:52 01:55 Temperature Pulse Rate 82 98 100 Respiratory 20 Rate Blood Pressure 119/78 O2 Sat by Pulse 99 Oximetry - Reevaluation(s) Reevaluation #1: 11/03/24 02:39 Patient reevaluated after second breathing treatment she does wish to be discharged. Return parameters discussed. Medical Decision Making - Medical Decision Making Was pt. sent in by a medical professional or institution (, PA, TEACHER OF THE HANDIC[employer]ED, urgent care, hospital, or skilled nursing...) When possible be specific @ -No Did you speak to anyone other than the patient for history (EMS, parent, family, police, friend...)? What history was obtained from this source @ -No Did you review nursing and triage notes (agree or disagree)? Why? @ -I reviewed and agree with nursing and triage notes Were old charts reviewed (outside hosp., previous admission, EMS record, old EKG, old radiological studies, urgent care reports/EKG's, skilled nursing records)? Report findings @ -No old charts were reviewed Differential Dyspnea: Coronary syndrome, arrhythmia, tamponade, asthma, COPD, pulmonary embolism, pneumonia, pneumothorax, pulmonary effusion, anaphylaxis, diabetic ketoacidosis, flailed chest, pulmonary contusion, diaphragmatic rupture, anemia, neuromuscu lar, this is not meant to be an all-inclusive list. EKG interpreted by me (3pts min.). @ -As above X-rays interpreted by me (1pt min.). @Chest x-ray negative for acute cardiopulmonary findings CT interpreted by me (1pt min.). @ -None done U/S interpreted by me (1pt. min.). @ -None done What testing was considered but not performed or refused? (CT, X-rays, U/S, labs)? Why? @ -None What meds were considered but not given or refused? Why? @ -None Did you discuss the management of the patient with other professionals (professionals i.e. , PA, TE[employer], lab, RT, psych nurse, social services technician, energy consultant, teacher, staff command and control officer, adult protective caseworker)? Give summary @ -No Was smoking cessation discussed for >3mins.? @ -No Was critical care preformed (if so, how long)? @ -No Were there social determinants of health that impacted care today? How? (Homelessness, low income, unemployed, alcoholism, drug addiction, transportation, low edu. Level, literacy, decrease access to med. care, nursing home, rehab)? @ -No Was there de-escalation of care discussed even if they declined (Discuss DNR or withdrawal of care, Hospice)? DNR status @ -No What co-morbidities impacted this encounter? (DM, HTN, Smoking, COPD, CAD, Cancer, CVA, ARF, Chemo, Hep., AIDS, mental health diagnosis, sleep apnea, morbid obesity)? @Asthma, Was patient admitted / discharged? Hospital course, mention meds given and route, prescriptions, significant lab abnormalities, going to OR and other pertinent info. @ -44-year-old female history of asthma presents with cough and dyspnea, patient is wheezing bilaterally. She is afebrile, viral panel is negative, chest x-ray is negative for focal pneumonia or acute findings. After her first treatment she has some improvement, given a second treatment while in the emergency department as well as steroid injection. Patient prefers discharge with outpatient treatment she is agreeable with strict return parameters if symptoms do not improve. Undiagnosed new problem with uncertain prognosis? @ -No Drug Therapy requiring intensive monitoring for toxicity (Heparin, Nitro, Insulin, Cardizem)? @ -No Were any procedures done? @ -No Diagnosis/symptom? @ -[Asthma exacerbation Acute, or Chronic, or Acute on Chronic? @ -Acute Uncomplicated (without systemic symptoms) or Complicated (systemic symptoms)? @ -Default Side effects of treatment? @ -No Exacerbation, Progression, or Severe Exacerbation? @ -No Poses a threat to life or bodily function? How? (Chest pain, [place], AR, pneumonia, PE, COPD, DKA, ARF, appy, cholecystitis, CVA, Diverticulitis, Homicidal, Suicidal, threat to staff... and all critical care pts) @ -Low risk at this time - Lab Data Lab Results 11/03/24 Range/Units 00:02 Influenza Type A (PCR) Not Detected (Not Detectd) Influenza Type B (PCR) Not Detected (Not Detectd) RSV (PCR) Not Detected (Not Detectd) SARS-CoV-2 (PCR) Not Detected (Not Detectd) Disposition Clinical Impression: Asthma with acute exacerbation Disposition: HOME SELF-CARE Condition: Fair Instructions (If sedation given, give patient instructions): Asthma (ED) Prescriptions: Loratadine [Claritin] 10 mg PO DAILY #30 tab predniSONE 50 mg PO DAILY #5 tab Albuterol Inhaler [Ventolin Hfa Inhaler] 1 - 2 puff INHALATION Q4HR PRN #1 each PRN Reason: Shortness Of Breath Albuterol Nebulized [Ventolin Nebulized] 2.5 mg INHALATION Q4H #75 ml Is patient prescribed a controlled substance at d/c from ED?: No Referrals: David Serrano MD [Primary Care Provider] - 1-2 days Time of Disposition: 01:53
[2024-11-03 00:44] LABS: Influenza A Not Detected (Not Detectd); Influenza B Not Detected (Not Detectd); RSV Not Detected (Not Detectd)
[2024-11-03] MEDS: ALBUTEROL NEBULIZED 2.5 MG/3 ML INHALATION STA (01:51)
[2024-11-03] MEDS: IPRATROPIUM-ALBUTEROL 3 ML NEB INHALATION STA (01:52)
--- NOTE | 2024-11-03 02:49 | XR ---
EXAM: XR Chest, 2 Views CLINICAL HISTORY: ITS.REASON XR Reason: cough TECHNIQUE: Frontal and lateral views of the chest. COMPARISON: No relevant prior studies available. FINDINGS: Lungs: Unremarkable. No consolidation. Pleural space: Unremarkable. No pneumothorax. Heart: Unremarkable. No cardiomegaly. Mediastinum: Unremarkable. Bones/joints: Unremarkable. IMPRESSION: Normal chest x-rays.
[2024-11-03 02:52] VITALS: BP 124/76; PULSE 92; TEMP 97.8
== END 2024-11-03 02:52 | disposition home or self-care (01) ==
LOC: EC 23:28
DX: J45.901 Unspecified asthma with (acute) exacerbation (principal); F17.290 Nicotine dependence, other tobacco product, uncomplicated
CPT/HCPCS: 94640; 99285; 96372; J1100; 71046; 87636